=== PATIENT | male | born 1950 | race Caucasian/White ===

== ENCOUNTER 2017-12-25 08:36 | Outpatient (CLI) | payer MEDICARE, OTHER, SELFPAY | END 2017-12-25 08:56 | PROVIDERS: PCP Family Medicine; Visit Provider Internal Medicine Interventional Cardiology | DX: I48.0 Paroxysmal atrial fibrillation (principal); I42.0 Dilated cardiomyopathy; I27.20 Pulmonary hypertension, unspecified | CPT/HCPCS: 99213 ==

== ENCOUNTER 2017-12-25 12:59 | Outpatient (CLI) | payer OTHER, SELFPAY ==
--- NOTE | 2017-12-25 11:44 | DI.RAD_ITS ---
SYMPTOM/DIAGNOSIS: COUGH CHEST X-RAY: PA, lateral. Comparison 02/09/15. Heart size and pulmonary vasculature are stable and within normal limits. The lungs are clear. There is hyperinflation of the lungs consistent with underlying COPD. No infiltrates, effusions or pneumothoraces are identified. Degenerative changes are seen in the spine. There are old healed right rib fractures. IMPRESSION: COPD. No acute pulmonary process.
== END 2017-12-25 13:19 ==
PROVIDERS: PCP Family Medicine; Visit Provider Internal Medicine Interventional Cardiology
DX: R05 Cough (principal); J44.9 Chronic obstructive pulmonary disease, unspecified; I48.0 Paroxysmal atrial fibrillation; I42.0 Dilated cardiomyopathy; I27.20 Pulmonary hypertension, unspecified; R09.02 Hypoxemia; Z87.891 Personal history of nicotine dependence
CPT/HCPCS: 99214; 71046; 93005; 93010

== ENCOUNTER 2018-03-08 00:22 | Outpatient (CLI) | payer OTHER, SELFPAY ==
--- NOTE | 2018-03-08 15:19 | DI.CTLCSR_ITS ---
SYMPTOM/DIAGNOSIS: EX SMOKER, Z87.891, PAST H/O NICOTINE DEPENDENCE,SCREENING LUNG CANCER SCREENING CHEST CT: The examination was carried out according to the usual protocol. Emphysematous and fibrotic changes are demonstrated in the lungs. Fibrotic changes are apparent. There are small lung cysts. There is no demonstrated pleural based pulmonary or hilar mass or evidence of hilar adenopathy. There is no evidence of a pleural effusion. As demonstrated, the cardiovascular structures appear intact with note made of coronary artery calcification. There is no thing to suggest an aortic aneurysm. There are degenerative changes involving the lumbar spine. No focal bony abnormality is apparent. SUMMARY: Chronic pulmonary changes with COPD, pulmonary fibrosis and lung cysts. No nodule or mass is identified. Follow up lung screening with a repeat CT in 12 months is suggested for continued surveillance of this patient. Lung-RAD Category: Lung RADS Category 1- Negative
== END 2018-03-08 00:42 ==
PROVIDERS: PCP Family Medicine; Visit Provider Internal Medicine
DX: Z12.2 Encounter for screening for malignant neoplasm of respiratory organs (principal); Z87.891 Personal history of nicotine dependence; J44.9 Chronic obstructive pulmonary disease, unspecified; J84.10 Pulmonary fibrosis, unspecified; J98.4 Other disorders of lung
CPT/HCPCS: G0297

== ENCOUNTER 2018-03-26 09:29 | Outpatient (CLI) | payer OTHER, SELFPAY | END 2018-03-26 09:49 | PROVIDERS: PCP Family Medicine; Visit Provider Internal Medicine Cardiovascular Disease | DX: I48.0 Paroxysmal atrial fibrillation (principal); I10 Essential (primary) hypertension; J44.9 Chronic obstructive pulmonary disease, unspecified; F17.210 Nicotine dependence, cigarettes, uncomplicated | CPT/HCPCS: 99214; 93005; 93010 ==

== ENCOUNTER 2018-03-28 13:51 | Outpatient (CLI) | payer OTHER, SELFPAY ==
[2018-03-28 15:20] LABS: Anion Gap 7.8 mmol/L (3-11); BUN 20 mg/dL (7-18); CO2 30.2 mmol/L (21.0-32.0); CREATININE 1.17 mg/dL (0.70-1.30); Calcium 8.9 mg/dL (8.5-10.1); Chloride 104 mmol/L (98-107); Glucose 106 mg/dL (70-100); Magnesium 1.8 mg/dL (1.8-2.4); Potassium 4.4 mmol/L (3.5-5.1); Sodium 142 mmol/L (136-145)
== END 2018-03-28 14:11 ==
PROVIDERS: PCP Family Medicine; Visit Provider Internal Medicine Cardiovascular Disease
DX: I48.91 Unspecified atrial fibrillation (principal)
CPT/HCPCS: 36415; 80048; 83735

== ENCOUNTER 2018-03-29 11:26 | Day surgery (SDC) | payer OTHER, SELFPAY ==
[2018-03-29] VITALS (7 sets, daily range): BP systolic 106–131; BP diastolic 68–88; PULSE 63–82; RESP 15–20; TEMP 35.8–36.7; O2SAT 89–99
[2018-03-29] MEDS: Normal Saline 1,000 ML 30 ML IV (12:19)
--- NOTE | 2018-03-29 13:49 | W.CARDVER ---
Date of service: 03/29/18 Time of Service: 13:49 Cardioversion Patient presented for elective cardioversion. Known atrial fibrillation that is paroxysmal and symptomatic. Informed consent obtained. Patient confirmed to be in atrial fibrillation. Patient monitored hemodynamically throughout the procedure. Anesthesia present for sedation. Nursing present. Cardioversion pads placed in anterior posterior orientation. 200 J synchronized cardioversion. Patient converted to sinus rhythm. No complications. Patient to resume his cardiac medications. He will follow-up with his race and sports book writer in 4-6 weeks.
--- NOTE | 2018-03-29 13:52 | CARD_ITS ---
Date of service: 03/29/18 Time of Service: 13:49 Cardioversion Patient presented for elective cardioversion. Known atrial fibrillation that is paroxysmal and symptomatic. Informed consent obtained. Patient confirmed to be in atrial fibrillation. Patient monitored hemodynamically throughout the procedure. Anesthesia present for sedation. Nursing present. Cardioversion pads placed in anterior posterior orientation. 200 J synchronized cardioversion. Patient converted to sinus rhythm. No complications. Patient to resume his cardiac medications. He will follow-up with his acid mixer in 4-6 weeks.
== END 2018-03-29 14:35 | disposition home or self-care (01) ==
LOC: SUR 11:27
PROVIDERS: PCP Family Medicine; Visit Provider Internal Medicine Cardiovascular Disease
PROC: 5A2204Z Restoration of Cardiac Rhythm, Single (ICD-10-PCS; CPT 92960; principal; 2018-03-29 13:00)
DX: I48.0 Paroxysmal atrial fibrillation (principal)
CPT/HCPCS: 92960; 93005; 93010

== ENCOUNTER 2018-04-16 02:37 | Outpatient (CLI) | payer OTHER, SELFPAY ==
--- NOTE | 2018-05-07 10:17 | ZIOP_ITS ---
DATE OF DICTATION: May 07, [address]: 12 days, 21 hours, April 16-2018 Baseline rhythm sinus. Rare single PAC. 116 bursts of SVT, longest 14.3 seconds, fastest 190 bpm. Atrial fibrillation occurred <1% on this monitor, longest run 31 seconds with average rate 114 bpm. Atrial fibrillation heart rates generally 95-128 bpm. Ectopic atrial rhythm noted intermittently. Rare single PVC. Rare couplet. Rare triplet. Three bursts of non-sustained VT, longest 5-beat dura tion, fastest 203 bpm. One triggered event during sinus rhythm with artifact. No bradycardia or block. No symptoms. Average heart rate sinus 65 bpm, range 41-124 bpm.
== END 2018-04-16 02:57 ==
PROVIDERS: PCP Family Medicine; Visit Provider Internal Medicine Interventional Cardiology
DX: I48.91 Unspecified atrial fibrillation (principal); I47.1 Supraventricular tachycardia
CPT/HCPCS: 0296T; 93225

== ENCOUNTER → 2018-05-07 11:03 | Outpatient (CLI) | payer OTHER, SELFPAY | PROVIDERS: PCP Family Medicine; Visit Provider Internal Medicine Interventional Cardiology | DX: I48.91 Unspecified atrial fibrillation (principal); I47.1 Supraventricular tachycardia; I42.9 Cardiomyopathy, unspecified; I77.819 Aortic ectasia, unspecified site; R09.02 Hypoxemia; I27.20 Pulmonary hypertension, unspecified; J44.9 Chronic obstructive pulmonary disease, unspecified; Z87.891 Personal history of nicotine dependence | CPT/HCPCS: 0298T; 99214; 93005; 93010 ==

== ENCOUNTER 2018-08-01 00:17 | Outpatient (CLI) | payer OTHER, SELFPAY ==
--- NOTE | 2018-08-01 10:35 | MERGE_ITS ---
*[facility]* * Cardiology* [address] [place] [address] Date of study: 08/01/2018 Transthoracic Echocardiography M-mode, complete 2D, complete spectral Doppler, and color Doppler *STUDY CONCLUSIONS* Summary: 1. Left ventricle: The cavity size was normal. Wall thickness was normal. Systolic function was normal. The estimated ejection fraction was 60-65%. Wall motion was normal; there were no regional wall motion abnormalities. 2. Ventricular septum: The contour showed diastolic flattening and systolic flattening. These changes are consistent with RV volume and RV pressure overload. 3. Right ventricle: The cavity size was mildly dilated. Wall thickness was normal. Systolic function was normal. Minor axis dimension, ED (basilar, A4C): 4.5cm. 4. Tricuspid valve: There was mild-moderate regurgitation. 5. Pulmonary arteries: Pulmonary systolic pressure was increased, in the range of 60mm Hg to 65mm Hg. *PATIENT PRESENTATION* Height: 177.8cm ((70in) ) S/D Pressure: 111 / 57 Weight: 83.9kg ((184.6lb) ) BSA: 2.05m^2 Test start time: 10:40 AM. Test stop time: 11:35 AM. ORDERING Samir Rodriguez MD REFERRING Samir Rodriguez MD PERFORMING Unknown CONSULTING Cooper Forbes PERFORMING [facility] PRINT PRODUCTION ASSOCIATE RT Yamil (R)(CT), MAIRA *PROCEDURE DATA* Procedure information: This study was interpreted by [facility]. Pertinent images and digital data are archived for permanent storage and are available for subsequent review. Comparison was made to the study of 11/30/2016. Study status: Routine. Transthoracic echocardiography. M-mode, complete 2D, complete spectral Doppler, and color Doppler. A Transthoracic Echocardiogram was performed. Scanning was performed from the parasternal, apical, subcostal, and suprasternal notch acoustic windows. Images were obtained using an [id number] cardiac ultrasound machine. Image quality was adequate. Study completion: The patient tolerated the procedure well. There were no complications. History: PMH: ROGER R06.02. *CARDIAC ANATOMY* Left ventricle: The cavity size was normal. Wall thickness was normal. Systolic function was normal. The estimated ejection fraction was 60-65%. Wall motion was normal; there were no regional wall motion abnormalities. Diastolic parameters were not diagnostic. Aortic valve: Trileaflet; normal thickness leaflets. Mobility was not restricted. Doppler: Transvalvular velocity was within the normal range. There was no stenosis. There was no significant regurgitation. VTI ratio of LVOT to aortic valve: 0.54. Valve area (VTI): 2.1cm^2. Indexed valve area (VTI): 1cm^2/m^2. Peak velocity ratio of LVOT to aortic valve: 0.66. Valve area (Vmax): 2.5cm^2. Indexed valve area (Vmax): 1.2cm^2/m^2. Mean velocity ratio of LVOT to aortic valve: 0.55. Valve area (Vmean): 2.1cm^2. Indexed valve area (Vmean): 1cm^2/m^2. Mean gradient (S): 6.9mm Hg. Peak gradient (S): 11.3mm Hg. Aorta: Aortic root: The aortic root was mildly dilated. Ascending aorta: The ascending aorta was normal in size. Mitral valve: Structurally normal valve. Mobility was not restricted. Doppler: Transvalvular velocity was within the normal range. There was no evidence for stenosis. There was no significant regurgitation. Valve area by pressure half-time: 3.3cm^2. Indexed valve area by pressure half-time: 1.6cm^2/m^2. Peak gradient (D): 2.5mm Hg. Left atrium: The atrium was normal in size. Right ventricle: The cavity size was mildly dilated. Wall thickness was normal. Systolic function was normal. Ventricular septum: The contour showed diastolic flattening and systolic flattening. These changes are consistent with RV volume and RV pressure overload. Pulmonic valve: Doppler: Transvalvular velocity was within the normal range. There was no evidence for stenosis. There was no significant regurgitation. Tricuspid valve: Structurally normal valve. Doppler: Transvalvular velocity was within the normal range. There was no evidence for stenosis. There was mild-moderate regurgitation. Pulmonary artery: Pulmonary systolic pressure was increased, in the range of 60mm Hg to 65mm Hg. Right atrium: The atrium was normal in size. Pericardium: There was no pericardial effusion. Systemic veins: Inferior vena cava: Well visualized. The vessel was patent and normal in size. The respirophasic diameter changes were in the normal range (greater than or equal to 50%). Baseline ECG: Bradycardia. Measurements Left ventricle Value 11/30/2016 Reference LV ID, ED, PLAX 4.8 cm 4.9 3.5 - 6.0 LV ID, ES, PLAX 3.3 cm 3.7 2.1 - 4.0 LV PW thickness, ED, PLAX 0.9 cm 1.2 LV end-diastolic volume, 121 ml 137 1-p A2C LV ejection fraction, 1-p 64 % 56 A2C LV end-diastolic volume, 106 ml 112 1-p A4C LV ejection fraction, 1-p 60 % 52 A4C LV e', lateral 0.114 m/sec LV E/e', lateral 7 LV e', medial 0.082 m/sec LV E/e', medial 10 LV e', average 0.098 m/sec LV E/e', average 8 Ventricular septum Value 11/30/2016 Reference IVS thickness, ED, PLAX 1.0 cm 1.2 LVOT Value 11/30/2016 Reference LVOT ID, A-P 2.2 cm 2.2 LVOT area 3.8 cm^2 4 LVOT peak velocity, S 1.1 m/sec 0.75 LVOT mean velocity, S 0.7 m/sec LVOT VTI, S 21.2 cm 18.3 LVOT peak gradient, S 4.9 mm Hg LVOT mean gradient, S 2.4 mm Hg 1.1 Stroke volume (SV), LVOT 80 ml DP Stroke index (SV/bsa), 39 ml/m^2 LVOT DP Aortic valve Value 11/30/2016 Reference Aortic valve peak 1.7 m/sec velocity, S Aortic valve mean 1.28 m/sec velocity, S Aortic valve VTI, S 39.0 cm Aortic mean gradient, S 6.9 mm Hg 3 Aortic peak gradient, S 11.3 mm Hg 7 VTI ratio, LVOT/AV 0.54 0.67 Aortic valve area, VTI 2.1 cm^2 Velocity ratio, peak, 0.66 LVOT/AV Aortic valve area, peak 2.5 cm^2 2.2 velocity Velocity ratio, mean, 0.55 LVOT/AV Aortic valve area, mean 2.1 cm^2 velocity Aortic valve area/bsa, 1 cm^2/m^2 mean velocity Aorta Value 11/30/2016 Reference Aortic root ID, ED 4.0 cm 4.0 Ascending aorta ID, A-P, S 3.6 cm 3.6 Left atrium Value 11/30/2016 Reference LA ID, A-P, ES 3.9 cm LA ID/bsa, A-P 1.9 cm/m^2 <=2.2 LA area, ES, A4C 21.1 cm^2 23.9 8.8 - 23.4 LA area, ES, A2C 20 cm^2 LA volume/bsa, ES, 1-p A4C 32 ml/m^2 39 LA volume/bsa, ES, 1-p A2C 33 ml/m^2 LA volume, ES, 2-p 56 ml LA volume/bsa, ES, 2-p 28 ml/m^2 LA/aortic root ratio 0.98 1.05 Mitral valve Value 11/30/2016 Reference Mitral E-wave peak 0.79 m/sec 1 velocity Mitral A-wave peak 0.79 m/sec 0.43 velocity Mitral deceleration time 228 ms 150 - 230 Mitral pressure half-time 66 ms 42 Mitral peak gradient, D 2.5 mm Hg 4 Mitral E/A ratio, peak 1 2.35 Mitral valve area, PHT, DP 3.3 cm^2 5.3 Pulmonary veins Value 11/30/2016 Reference Pulmonary vein peak 0.77 m/sec 0.37 velocity, S Pulmonary vein peak 0.58 m/sec 0.65 velocity, D Pulmonary vein velocity 1.32 0.57 ratio, peak, S/D Pulmonary vein A-wave 0.33 m/sec reversal peak velocity Pulmonary vein A-wave 88 ms reversal duration Tricuspid valve Value 11/30/2016 Reference Tricuspid regurg peak 3.8 m/sec 3.4 velocity Tricuspid peak RV-RA 59.2 mm Hg 45.8 gradient Right atrium Value 11/30/2016 Reference RA area, ES, A4C 19.2 cm^2 22.8 8.3 - 19.5 Right ventricle Value 11/30/2016 Reference RV ID, minor axis, ED, A4C 4.5 cm base Legend: (L) and (H) preston values outside specified reference range. I have personally reviewed the images and have reviewed and edited the reported findings. Electronically signed by Mal Harry 08/01/2018 12:28
== END 2018-08-01 00:37 ==
PROVIDERS: PCP Family Medicine; Visit Provider Internal Medicine Interventional Cardiology
DX: R06.02 Shortness of breath (principal); I07.1 Rheumatic tricuspid insufficiency; I51.7 Cardiomegaly
CPT/HCPCS: 93306

== ENCOUNTER 2018-08-13 08:18 | Outpatient (CLI) | payer OTHER, SELFPAY | END 2018-08-13 08:38 | PROVIDERS: PCP Family Medicine; Visit Provider Internal Medicine Interventional Cardiology | DX: J44.9 Chronic obstructive pulmonary disease, unspecified (principal); Z99.81 Dependence on supplemental oxygen; Z87.891 Personal history of nicotine dependence; I48.0 Paroxysmal atrial fibrillation; I42.0 Dilated cardiomyopathy; I27.20 Pulmonary hypertension, unspecified; R05 Cough | CPT/HCPCS: 99214; 93005; 93010 ==

== ENCOUNTER 2018-12-26 20:33 | Outpatient (REF) | payer OTHER, SELFPAY | END 2018-12-26 20:53 | LOC: NCHCN 20:33 | PROVIDERS: PCP Family Medicine; Visit Provider Internal Medicine | DX: L02.91 Cutaneous abscess, unspecified (principal) | CPT/HCPCS: 87070; 87205 ==

== ENCOUNTER 2019-07-12 02:04 | Outpatient (CLI) | payer OTHER, SELFPAY ==
[2019-07-12 17:18] LABS: Anion Gap 5.7 mmol/L (3-11); BUN 17 mg/dL (7-18); CO2 30.3 mmol/L (21.0-32.0); CREATININE 1.27 mg/dL (0.70-1.30); Calcium 8.7 mg/dL (8.5-10.1); Chloride 102 mmol/L (98-107); Glucose 110 mg/dL (74-106); Potassium 4.9 mmol/L (3.5-5.1); Sodium 138 mmol/L (136-145)
== END 2019-07-12 02:24 ==
PROVIDERS: PCP Family Medicine; Visit Provider Family Medicine
DX: I10 Essential (primary) hypertension (principal)
CPT/HCPCS: 36415; 80048

== ENCOUNTER 2020-09-01 20:45 | Outpatient (REF) | payer OTHER, SELFPAY | END 2020-09-01 20:46 | disposition home or self-care (01) | LOC: LBN 20:45 | PROVIDERS: Visit Provider Nurse Practitioner | DX: J02.9 Acute pharyngitis, unspecified (principal) | CPT/HCPCS: 87070 ==

== ENCOUNTER 2020-11-27 10:13 | Outpatient (CLI) | payer OTHER, SELFPAY ==
[2020-11-27 12:42] LABS: HCT 48.3 % (40.0-50.0); MCH 29.6 pg (27.0-33.0); MCHC 31.1 % (32.0-36.0); MCV 95.5 fL (80-95); MPV 10.2 fL (8.0-11.0); Platelet Count 249 10^3/uL (130-400); RBC 5.06 10^6/uL (4.36-5.78); RDW 15.5 % (11.8-14.1); RDW-SD 53.9 fL; WBC 7.99 10^3/uL (4.4-10.8)
[2020-11-27 12:49] LABS: Anion Gap 6.1 mmol/L (3-11); BUN 25 mg/dL (7-18); CO2 32.9 mmol/L (21.0-32.0); CREATININE 1.4 mg/dL (0.70-1.30); Calcium 8.9 mg/dL (8.5-10.1); Chloride 105 mmol/L (98-107); Estimated GFR 50.25 (mL/min/1.73m2); Glucose 81 mg/dL (74-106); Potassium 4.4 mmol/L (3.5-5.1); Sodium 144 mmol/L (136-145)
[2020-11-27 13:39] LABS: Hemoglobin A1C 6.2 % (<5.7)
== END 2020-11-27 10:14 | disposition home or self-care (01) ==
LOC: LOS 10:13
PROVIDERS: PCP Family Medicine; Referring Provider Family Medicine; Visit Provider Family Medicine
DX: R73.9 Hyperglycemia, unspecified; E87.1 Hypo-osmolality and hyponatremia; R53.83 Other fatigue
CPT/HCPCS: 36415; 80048; 85027; 83036

== ENCOUNTER 2020-12-08 18:14 | Outpatient (REF) | payer MEDICARE, SELFPAY ==
[2020-12-09 13:12] LABS: Abs Immature Grans 0.07 10^3/uL (0.0-0.06); Absolute Basophil Count 0.09 10^3/uL (0.0-0.2); Absolute Eosinophil Count 0.09 10^3/uL (0.0-0.7); Absolute Lymphocyte Count 0.69 10^3/uL (1.2-3.4); Absolute Monocyte Count 0.65 10^3/uL (0.1-0.8); Basophils % 1.1; Eosinophils % 1.1; HCT 49.7 % (40.0-50.0); HGB 15.2 g/dL (13.5-17.5); Immature Grans % 0.9; Lymphocytes % 8.6; MCH 29.1 pg (27.0-33.0); MCHC 30.6 % (32.0-36.0); MCV 95.2 fL (80-95); MPV 9.9 fL (8.0-11.0); Monocytes % 8.1; Neutrophils % 80.2; Nucleated RBC 0 %; Platelet Count 320 10^3/uL (130-400); RBC 5.22 10^6/uL (4.36-5.78); RDW 15.3 % (11.8-14.1); RDW-SD 54.1 fL; WBC 7.99 10^3/uL (4.4-10.8)
[2020-12-09 13:21] LABS: Anion Gap 9.8 mmol/L (3-11); BUN 29 mg/dL (7-18); CO2 30.2 mmol/L (21.0-32.0); CREATININE 1.8 mg/dL (0.70-1.30); Calcium 8.8 mg/dL (8.5-10.1); Chloride 103 mmol/L (98-107); Estimated GFR 37.49 (mL/min/1.73m2); Glucose 123 mg/dL (74-106); NT-proBNP 5240 pg/mL (<300); Potassium 3.6 mmol/L (3.5-5.1); Sodium 143 mmol/L (136-145)
[2020-12-10 10:33] LABS: COVID-19 RT-PCR UVMMC Result Negative (Negative)
== END 2020-12-08 18:15 | disposition home or self-care (01) ==
LOC: LBN 18:14
PROVIDERS: PCP Family Medicine; Visit Provider Family Medicine
DX: Z20.822 Contact with and (suspected) exposure to COVID-19 (principal); R05.9 Cough, unspecified; J06.9 Acute upper respiratory infection, unspecified; R06.02 Shortness of breath; E87.1 Hypo-osmolality and hyponatremia
CPT/HCPCS: U0003; U0005

== ENCOUNTER 2020-12-08 18:31 | Outpatient (CLI) | payer MEDICARE, SELFPAY ==
--- NOTE | 2020-12-08 14:00 | DI.RAD_ITS ---
Exam(s) XR CHEST 2V PA LATERAL EXAM: XR CHEST 2V PA LATERAL CLINICAL HISTORY: sob,chronic cough, r05.3 TECHNIQUE: 2D digital imaging was performed. FINDINGS: MEDIASTINUM: Normal. HEART: Normal. PULMONARY VASCULATURE: Prominent, which could be related to pulmonary hypertension. LUNGS: Upper lobe emphysematous changes. Mild fibrotic changes. Scarring at the left lung base. PLEURAL SPACE: No pleural effusion or pneumothorax. BONE:Old right upper rib fractures. Mild degenerative changes in the spine. IMPRESSION: Emphysematous and fibrotic changes. No acute abnormality. DATA REPOSITORY: RADIATION DOSE DELIVERED:
== END 2020-12-08 18:51 ==
PROVIDERS: PCP Family Medicine; Visit Provider Family Medicine
DX: R06.02 Shortness of breath (principal); R05.3 Chronic cough; J98.4 Other disorders of lung
CPT/HCPCS: 71046

== ENCOUNTER 2020-12-09 12:57 | Outpatient (CLI) | payer MEDICARE, SELFPAY ==
--- OUTSIDE RECORDS SUMMARY | 2020-12-09 13:00 | XMS_ITS ---
:1950 Author Care Team Providers Name Role Phone MARY ANNE VALDEZ MD Test Carrier Unavailable SAMIR RODRIGUEZ MD Injection Molding Technician [phone] [facility] Primary Care Provider [phone] Allergies Code Code System Name Reaction Severity Status Onset NKDA ? Notes: No seafood allergy. No co ntrast allergy. Medications Name Status Start Date Stop Date ? ? Farxiga 10 mg tablet Completed ? 04/30/2020 Take 1 tablet every day by oral route. Flovent HFA 110 mcg/actuation aerosol Completed ? 05/17/2018 inhaler fluticasone propionate 50 mcg/actuation Active ? Not available nasal spray,suspension furosemide 20 mg tablet Active ? Not avai lable ipratropium bromide 21 mcg (0.03 %) nasal spray Active ? Not available INSTILL 2 SPRAYS INTO EACH NOSTRIL TWICE A DAY levalbuterol HFA 45 mcg/actuation Active ? Not available aerosol inhaler levofloxacin 500 mg tablet Completed ? 10/23 losartan 25 mg tablet Active ? Not availa ble metoprolol succinate ER 100 mg Active ? N ot available tablet,extended release 24 hr prednisone 10 mg tablet Completed ? 10/24/19 20 Spiriva with HandiHaler 18 mcg and Completed ? 05/17/2018 inhalation capsules spironolactone 25 mg tablet Active ? Not available sulfamethoxazole 800 mg-trimethoprim Completed ? 02/28/2019 160 mg tablet Trelegy Ellipta 100 mcg-62.5 mcg-25 mcg powder for inhalation Ac tive ? Not available INHALE ONE PUFF BY MOUTH EVERY DAY Xarelto 20 mg tablet Active ? Not availab le Zyrtec 10 mg tablet Active ? Not availabl e Take 1 tablet every day by oral route. Problems Name Status Onset Date Source ? Atrial Fibrillation Active 02/28/2019 ? Idiopathic Sleep Related Active ? History Non-obstructive Alveolar Hypoventilation Essential Hypertension Active ? ? Pulmonary Hypertension Active ? ? Dilated Cardiomyopathy Active ? ? Paroxysmal Atrial Fibrillation Active ? ? Dilatation of Aorta Active ? ? Pulmonary Emphysema Active ? ? Chronic Obstructive Lung Disease Active ? History Apnea Active ? History Snoring Active ? History Procedure by Method Unknown ? History Procedures Date Name Performed by ? 08/01/2018 Echocardiography Information not avai lable Notes: 11/30/16; 04/21/16; 04/23/13; 10/15 06/25; 07/30/12 03/29/2018 Cardioversion Information not avai lable Notes: 06/26/17; 11/28/16; 10/20/15; 201 3 03/02/2017 Measurement of Respiratory Function Info rmation not available 12/12/2016 Holter Extended Electrocardiographic Rec ording Information not available Notes: 11/02/15; 10/26/12; 08/06/12 08/02/2012 Cardiovascular Stress Testing Informatio n not available 03/01/2018 LDCT, Chest, for Lung Cancer Screening [facility] (Radiology) [address] [place] [address] (Work Place) 05/17/2018 LDCT, Chest, for Lung Cancer Screening [facility] Radiology (Internal) [address] [place] [address] (Work Place) 02/28/2019 US, Echocardiogram [facility] Radiology (Internal) [address] [place] [address] (Work [address]) 02/28/[address] [facility] Cardio pulmonary [address] [place] [address] (Work Place) 03/21/2019 LDCT, Chest, for Lung Cancer Screening [facility] Radiology (Internal) [address] [place] [address] (Work [address]) 07/03/2019 CT, Chest, W/o Contrast [facility] Radiology (Internal) [address] [place] [address] (Work Place) 03/16/2020 US, Echocardiogram [facility] Radiology (Internal) [address] [place] [address] (Work [address]) 10/24/2019 US, Echocardiogram [facility] Radiology (Internal) [address] [place] [address] (Work Place) 04/28/2020 US, Echocardiogram, Transthoracic, [facility] Radiology (Internal) Complete [address] [place] [address] (Work Place) 05/04/2020 LDCT, Chest, for Lung Cancer Screening [facility] Radiology (Internal) [address] [place], [place] [id number] (Work Place) 10/26/2020 US, Echocardiogram, Transthoracic, [facility] Radiology (Internal) Complete [address] [place] [address] (Work Place) 11/03/2020 US, Echocardiogram, Transthoracic, [facility] Radiology (Internal) Complete [address] [place] [address] (Work Place) Notes: 10/2012 Results Lab Results Date Name Specimen Result Interpretation Description Value Range Status Address ? 10/28/2019 EKG Done by ? No ? ? ? N orth Lab observation Count ry recorded. Hospita [facility] Lab (Internal) : [address] 10/24/2019 CBC W/ Auto BLD ? Wbc 7.9 5.0-10.0 Final [place] Diff 10*3/uL 10*3/uL [facility] (Internal) : [address] ? ? BLD ? Rbc 5.34 4.60-6.00 Final [place] 10*6/uL 10*6/uL [facility] (Internal) : [address] ? ? BLD ? Hgb 15.9 g/dL 14.0-18.0 Final [place] g/dL [facility] (Internal) : [address] ? ? BLD ? Hct 49.7 % 41.0-51.0 Final [place] % [facility] (Internal) : [address] ? ? BLD ? Mcv 93.1 fL 80.0-96.0 Final [facility] (Internal) : [address] ? ? BLD ? Mch 29.8 pg 26.0-32.0 Final [place] [facility] (Internal) : [address] ? ? BLD ? Mchc 32.0 g/dL 31.0-35.0 Final Nort h g/dL [facility] (Internal) : [address] ? ? BLD High Rdw 14.7 % 11.5-14.5 Final [place] % [facility] (Internal) : [address] ? ? BLD ? Plt 310 130-450 Final [place] 10*3/uL 10*3/uL [facility] (Internal) : [address] 10/24/2019 BMP, Serum or S ? g/r 91 mg/dL 74-106 [place] Plasma mg/dL [facility] (Internal) : [address] ? ? S ? Bun 20 mg/dL 9-20 Final [place] mg/dL [facility] (Internal) : [address] ? ? S ? Crea 1.20 0.66-1.25 Final [place] mg/dL mg/dL [facility] (Internal) : [address] ? ? S ? Ca 9.9 mg/dL 8.4-10.2 Final [place] mg/dL [facility] (Internal) : [address] ? ? S ? Na 140 137-145 Final [place] mmol/L mmol/L [facility] (Internal) : [address] ? ? S ? K 4.5 3.5-5.1 Final [place] mmol/L mmol/L [facility] (Internal) : [address] ? ? S ? Cl 102 98-107 Final [place] mmol/L mmol/L [facility] (Internal) : [address] ? ? S ? Tco2 30.0 22.0-30.0 Final [place] mmol/L mmol/L [facility] (Internal) : [address] 10/24/2019 Differential, BLD ? Polys 63 % 40-75 % Final [place] Manual, [facility] [address], [place] ? ? BLD ? Bands 0 % 0-5 % Final [facility] (Internal) : [address] ? ? BLD Low Lymphs 19 % 20-50 % Final [facility] ab (Internal) : [address] ? ? BLD High Nuckolls 11 % 2-10 % Final [facility] (Internal) : [address] ? ? BLD ? Eos 3 % 0-6 % Final [facility] ab (Internal) : [address] ? ? BLD ? Baso 1 % 0-1 % Final [facility] (Internal) : [address] ? ? BLD ? Atyp Lymph 3 % ? Final [facility] ab (Internal) : [address] ? ? BLD ? Plts, Est. adequate adequate Final [facility] (Internal) : [address] ? ? BLD ? RBC normal normal Final [facility] (Internal) : [address] 10/24/2019 Neutrophil BLD ? Anc-manual 4.96 ? [place] [facility] Count, 10*3/uL [facility] (Anc), Blood (Int ernal): [address] 10/24/2019 Nlr-manual BLD High Nlr - 3.32 0.00-3.20 Final [facility] L [facility] (Internal) : [address] 10/24/2019 BNP (B-type S High Nt-probnp 858 pg/mL 0-125 [facility]mL Count ry Peptide), Hospita l Lab Prohormone (Inter nal): N-terminal, [address], [place] Immunoassay, Blood Past Encounters 11/03/2020 Cardiomyopathy Samir Rodriguez MD: [address] [place] [address], Ph. 04/28/2020 Dilated Cardiomyopathy; Cardiomyopathy Samir Rodriguez MD: [address] [place] [address], Ph. 10/24/2019 Dilatation of Aorta Samir Rodriguez MD: [address] [place] [address], Ph. 07/03/2019 Chronic Obstructive Lung Disease Mary Anne Valdez MD: [address] [place] [address], Ph. Social History Tobacco Smoking Status Former Smoker Vaccine List Notes: refuses flu shots and pne [place] Plan of Care Reminders Provider Appointments None ? ? recorded. Lab None ? ? recorded. Referral None ? ? recorded. Procedures None ? ? recorded. Surgeries None ? ? recorded. Imaging None ? ? recorded. Vitals 11/03/2020 10:30AM Follow Up 30 Height Blood Pressure 177.8 cm 111/71 mm[Hg] 04/28/2020 09:00AM Follow Up 30 Height Weight BMI Blood Pressure 177.8 cm 86.2 kg 27.3 kg/m2 122/87 mm[Hg] 10/24/2019 08:30AM Follow Up 30 Height Weight BMI Blood Pressure 177.8 cm 85.4 kg 27 kg/m2 109/77 mm[Hg] 07/03/2019 03:00PM Follow Up 30 Height Weight BMI Blood Pressure 177.8 cm 88.3 kg 27.9 kg/m2 137/76 mm[Hg] 04/03/2019 10:30AM Follow Up 30 Height Weight BMI Blood Pressure 177.8 cm 83.35 kg 26.4 kg/m2 129/72 mm[Hg] 03/21/2019 01:00PM Follow Up 30 Height Weight BMI Blood Pressure 177.8 cm 87.9 kg 27.8 kg/m2 126/62 mm[Hg] 02/28/2019 08:30AM Consult 45 Height Weight BMI Blood Pressure 177.8 cm 86.6 kg 27.4 kg/m2 124/82 mm[Hg] 05/17/2018 09:45AM Follow Up 30 Height Weight BMI Blood Pressure 177.8 cm 89.2 kg 28.2 kg/m2 122/68 mm[Hg] 03/01/2018 09:30AM Consult 45 Height Weight BMI Blood Pressure 177.8 cm 88.7 kg 28.1 kg/m2 112/64 mm[Hg] 02/16/2017 Height 177.8 cm 02/16/2017 Weight Blood Pressure 85.98 kg 122/78 mm[Hg] 12/29/2016 Weight Blood Pressure 82.1 kg 140/82 mm[Hg] 12/29/2016 Height 177.8 cm
--- OUTSIDE RECORDS SUMMARY | 2020-12-09 13:01 | XMS_ITS | Encounter Summary ---
:1950 Author Care Team Providers Name Role Phone [facility] Medical Primary Care Provider [phone] Samir Rodriguez MD Field Return Repairer [phone] Mary Anne Valdez MD Buyer Intern Unavailable Reason for Visit Follow Up Echo; Atrial Fibrillation; Pul monary HTN; Aortic Dilation Assessment and Plan Assessment Note Date: November 03, 2020 Referring: Re: Mina Martins 69-year-old man. Problems: 1. Atrial fibrillation. Intermittent palpitations. Atrial fibrillation managed with rate co ntrol (beta-lolly), anticoagulation with rivaroxaban. Multiple cardioversions with recurrent a trial fibrillation. Summer 2017: Evaluated by Kimo Alfaro MD EP in [place] regarding ablation. Kimo's opinion was that the patient could try an antiarrhythmic (Tikosyn recommended), or proceed directly to ablation (o r third option, continue as we are). Pat ient wished (and continues to wish) to continue as we are. In detail: In 2012 noted a one-year gradual decreas e in aerobic capacity and increasing dyspnea. This increased significantly through summer 2012. He was noted to be in atrial fibrillatio n with RVR. Echocardiogram: LVEF 25%, dilated cardiomyopathy. MPI: Negative ischemia. [facility] summer 2012. Recurrent atrial fibrillation September 6. A sensation of not feeling right. Noted an increase in shortness of breath and dyspnea on exertion. [facility] October 2015. Recurrent atrial fibrillation August 2016. Intermittent palpitations/shortness of breath fatigue. [facility] November 2016. [facility] June 2017. [facility] March 2018. [facility] March 06, 2019. Patient went back in atrial fibrillation September 14, 2019. When I am pushing myself, I know it is there. Patient was reluctant to consider repeat cardioversion. Agreed to pursue rate control/anticoagulation strategy. 2. Cardiomyopathy. Noticed 2012 as above. Likely tachycardi a mediated. Negative MPI. No history of viral illness. TSH normal. No history exposure/chemotherapy/radiation. No alcohol for decades. Echocardiogram normalized 2016 (60% LVEF ). LVEF have subsequently vacillated between 50 and 60%, however most recent echo, April 2020: LVEF 45%. 3. Sleep apnea. Does have nocturnal hypoxia on nocturnal oxygen. Apparently does not have sleep apnea as such (has been evaluated). 4. COPD. Severe. Home O2 dependent. HPI: November 03, 2020. Patient continu es to stay modestly active around the house. He has a horse, he mucks the stall every day. Shovels a lot of sawdust. Puts down hay, paris the horse etc. This is his most vigorous form of physical activ ity currently. Shovels snow. Cleans the roof off. Activities are well-tolerated for the most part. Heart rates at home typically 65-115 bpm , usually around 85-90 bpm. He is more short of breath. When he walk s the barn, distance of 150 feet there is a bit of a dip in the middle of this path. He is often times quite short of breath when he walks uphill in either direct ion. Stairs can make him quite short of breath. The cold weather is a trigger for aggravating dyspnea. He is tolerated the humid weather reasonably well. He is careful about what he does and how fast he does it. Walking uphill is the hardest thing he does. He is not good about using oxygen. Oxyge n saturations will occasionally dip into the 70s with exertion. They are in the 80s at rest. He has noted increased lower extremity e tay. This does not have an orthostatic character any longer. Legs are swollen throughout the course of the day and night. His weight is overall stable, around 18 0 pounds. PMD recently started Lasix 20 mg twice daily, he is quite inconsistent about taking Lasix. No significant impact on his lower extremities yet. Uses oxygen at night. No chest discomfort. Dyspnea with exerti on as above. Lower extremity edema. He may develop a something of a cough if he does not take his Lasix. No PND orthopnea. Sleeps on one pillow. 2 L oxygen at [facility]. Occasional palpitations especially w ith physical activity. No presyncope or syncope. No bleeding problems. Data: Cardiac risk factors: Positive tobacco, [id number] history, decreased 2011 to several cigarettes per day. He has quit. Negative family history (father's brothers, x5, sudden cardiac history, MIs ). Negative diabetes. Negative hypertens ion. Negative cholesterol. Social history: Activity profile as abov e. No alcohol. No tobacco. Past medical history: As above. Review of systems: A 10-point review of systems was obtained. Pertinent positives as described in HPI, all others negative. Echo: October 26, 2020. LVEF 40-45%. A trial fibrillation. Paradoxical septal motion. Inferoseptal, anteroseptal base hypokinetic. Right ventricle mildly dilated, mild hypokinesis. Left atrium mildly d ilated, 35.2. Right atrium moderately di lated. Aortic valve trileaflet. 1+ MR. 2+ TR. Pulmonary pressure 55-65 mmHg. Pericardium normal. Aortic root mildly dilated 3.9. Ascending normal 3.4. Arch normal 1.2. No coarct. No PDA. IVC normal. E/E primed average 6.1. April 20, 2020. LVEF 45%. Normal size. Ba cristobal anteroseptal moderately to severely hypokinetic to the mid-ventricle. Inferolateral wall moderately hypokinetic. Normal apical contraction. Diastolic indices not assessed due to atrial fibrillation. E/E primed less than 11. Right ventricle mildly dilated, mildly globally hypokinetic. Left atrium mildly dilated. Right atrium mildly dilated. Aortic valve trile aflet. Trivial MR. 2+ TR. Pulmonary pres sure 40-50 mmHg. Pericardium normal. Aortic root mildly dilated 4.2. Ascending normal 3.4. Arch normal 2.6. No coarct. No PDA. IVC normal. March 04, 2019. LVEF 50-55%. Normal si ze. Mild LVH. Right ventricle dilated, normal function. Left atrium normal. Right atrium normal. Aortic valve trileaflet. Sclerotic. Trace AI. Trivial MR. 2+ TR. Pulmonary pressure 45-55 mmHg total. Aor tic root moderately dilated 4.4. Ascending aorta normal 3.4. Aortic arch normal 2.6. No coarct. No PDA. IVC normal. Atrial fibrillation. E/E prime average less than 11. August 01, 2018. LVEF 60-65%. Normal size. Diastolic parameters nondiagnostic. Ventricular septum flattened in diastole and systole: RV volume / pressure overload suggested. Right ventricle mildly dilated , normal function. Aortic valve trileafl et. Aortic root mildly dilated, ascending aorta normal. Left atrium normal. Right atrium normal. 1?2+ TR. IVC normal E/E prime average 8. Rhythm unclear. P ulmonary pressure 55-60 mmHg plus right atrial pressure (55-65 mmHg total). November 30, 2016. LVEF 50-55%. Normal si ze. Mild LVH. Right ventricle normal size, low normal systolic function. Ventricular septum flattened in systole and diastole: RV pressure/volume overload. Aortic root upper limits normal size, 4 cm, as cending aorta 3.6 cm. Aortic valve trileaflet. 1+ MR. Mild left atrial enlargement. Moderate right atrial enlargement. Pulmonary pressure 45-50 mmHg. Diastolic assessment not possible. April 21, 2016. LVEF 60%. Moderate LVH. N ormal size. Mild inferolateral hypokinesia. Right ventricle normal. Aortic valve trileaflet. Mildly dilated aortic root 4.1 cm. Ascending aorta normal 3.3 cm. 1+ MR. 1+ TR. Mild left atrial enlargement, mild right atrial enlargement. Pulmonary pressure 30-40 mmHg. IVC normal. April 23, 2013. LVEF 50%, mild inferobas al hypokinesis. Right ventricle normal. No significant valvular pathology. Pulmonary pressure 36 mmHg. Atrial size normal. Aortic root 4.3, ascending aorta 3.6. November 07, 2012. LVEF 45%. Mild diffu se hypokinesia. Normal size. Right ventricle normal. No significant valvular pathology. Pulmonary pressure 50 mmHg plus right atrial pressure. Aortic root mildly dilated, 4.5 cm. Ascending aorta 3.3 cm. July 30, 2012. LVEF 25%. Severe global h ypokinesia. The limits normal size. Right ventricle mildly hypokinetic, normal size. 2+ MR. Pulmonary pressure 15-20 mmHg plus right atrial pressure. Moderate lef t atrial enlargement. Moderate mild aort ic root dilatation, 4.5 cm. Normal ascending aorta. Cardiac MRI: Stress: August 02, 2012. Ambulated 2 minut es 50 seconds on the Steve protocol stopped because of rapid atrial fibrillation. No chest pain. No EKG changes. Normal perfusion. Negative ischemia. LVEF 14% (atrial fibrillation). [facility]: Holter: March 21, 2019. 48-hour study. Baseline rhythm sinus. Very frequent single PAC. Cannot rule out runs of atrial fibrillation. 79 runs SVT identified. Longest 10 beat duration, fastest 166 bpm. Some of these runs may be atrial fibrill ation. Rare single PVC, 95 total. 1 couplet. No VT. Nocturnal heart rates as low as 40-45 bpm, sinus bradycardia.. No symptoms. Average heart rate 71 bpm, range 43-127 bpm. December 12, 2016. 24-hour study. Baselin e rhythm sinus. Rare single PAC. 21 burst SVT, longest 18 beat duration, fastest 166 bpm. No atrial fibrillation. Rare single PVC. No VT. No significant bradycard ia. No symptoms. Average rate 67 bpm, ra nge 43-123 bpm. Event monitor: April 162018. Baselin e rhythm sinus. Rare single PAC. 116 burst SVT, longest 14.3 seconds, fastest 190 bpm. Atrial fibrillation occurring less than 1%. Longest run 31 seconds, average rate 114 bpm. Atrial fibrillation heart rates generally 95-128 bpm. Ectopic atrial rhythm noted intermittently. Rare single PVC. Rare couplet. Rare triplet. 3 burst nonsustained VT, longest 5 beat dura tion, fastest 203 bpm. 1 triggered event during sinus rhythm with artifact. No bradycardia or block. No symptoms. Average heart rate 65 bpm, range 41-124 bpm. EKG: November 03, 2020. Atrial fibrilla tion 89 bpm. Normal axis. No acute change. QT/QTc 348/398 ms. April 28, 2020. Atrial fibrillation 99 b pm. Normal axis. QT/QTc 342/410 ms. October 24, 2019. Atrial fibrillation 95 bpm. Normal axis. No acute process. QT/QTc 338/399 ms. April 03, 2019. Sinus rhythm 54 bpm. Normal axis. QT/QTc 406/396 ms. February 28, 2019. Atrial fibrillation 89 bpm. Normal axis. Incomplete right bundle branch block. QT/QTc 354/404 ms. August 13, 2018. Sinus rhythm 58 bpm. Kateryna l axis. QT/QTc 390/383 ms. T wave inversion lead L. May 07, 2018. Sinus rhythm 62 bpm. Nor mal axis. QT/QTc 384/390 ms. T wave inversion lead L. Radiology: March 21, 2019. Low-dose ch est CT screening. 2 stable nodules left lung. New area spiculated density right upper lobe. Mild to moderate coronary artery calcification. Recommend: PET CT or repeat CT scan in 6-8 weeks. July 20, 2015. Chest x-ray. Interstitial changes, chronic Pulmonary function test: March 02 8. FVC 94% predicted, FEV1 49% predicted, FEV1/FVC 52% predicted. DLCO uncorrected 33% predicted. Spirometry: Severe obstructive airway disease with significant b ronchodilator response. Lung volumes: No evidence restriction. Mild hyperinflation and air trapping. Diffusion capacity: Severely reduced when corrected with alveolar volume. Airway resistance mildly el evated. Impression: Severe obstructive a irway disease associated with mild hyperinflation, air trapping, and severe diffusion defect. Allergies: NKDA Contrast allergies: Labs: October 24, 2019. CBC normal. July 26, 2018. BUN/creatinine 20/1.17, G FR greater than 60. Lites normal including potassium. June 30, 2017. BUN/creatinine 11/1.08, GF R greater than 60. Lites normal. Total cholesterol 132, HDL 41, LDL 78, triglycerides 86. July 30, 2012. proBNP 1882. Medications: Lasix 20 mg twice daily, lo sartan 25 mg daily, Xarelto 20 mg daily, metoprolol succinate 100 mg daily Zyrtec, Trelegy, lev albuterol, Atrovent , fluticasone Exam: Blood pressure: 111/71 Heart rate: 101 Oxygen saturation: 82% room air rest Weight: 190 pounds, 188 pounds, 183.8 po unds, 196.7 pounds, 195.5, 195.4, 189, 181, 188.6, 190, 189, 184, 182, 190 General: Patient alert oriented appropri ate conversant. HEENT: JVP 7 cm sitting. Heart: Irregularly irregular. Lungs: Diminished breath sounds bilatera lly, clear. Abdomen: Soft. Nontender. Nondistended. No sacral edema. Extremities: 2+ edema bilateral lower ex tremity. In support hose. Assessment: 1. Atrial fibrillation. Atrial fibrillation probably permanent a t this point. Management long-term with beta-lolly a nd rivaroxaban. Recurrent atrial fibrillation 2012, 2013 , 2015, 2016, 2017, 2017, 2019. Cardioversions after all these recurrences. Normal thyroid function historically. He has nocturnal hypoxemia, uses oxygen at night. No sleep apnea as such, he has undergone evaluation. Chads 2 vasc= 3, cardiomyopathy, age gre ater than 65, hypertension. Tolerating rivaroxaban without difficulty. He has been unenthusiastic about the pos sibility of antiarrhythmic therapy or ablation. He saw Kimo Alfaro in December 2017. Kimo thought ablation would be a fair option, as would antiarrhythmic thera py with Tikosyn or, continuing current m anagement. Event monitor April 2018: Baseline rhyth m sinus with less than 1% atrial fibrillation. A. fib events noted were paroxysmal and brief, lasting less than 30 seconds. Average sinus rate 65 bpm. I think he is maximally beta blocked. Recurrent atrial fibrillation mid [facility] er 2018. DCCV March 06, 2019. Holter monitor 48-hour March 2019: Ba chapis rhythm sinus. Very frequent single PAC cannot rule out bursts of brief A. fib, 79 such episodes identified. No significant ventricular ectopy. No symptoms. Redeveloped atrial fibrillation September. He notices it when he exerts himself. Otherwise, A. fib appears to be reasonably well-tolerated, with reasonable heart rate control. With recurrent atrial fibrillation as russell ch and no interest in rhythm control strategy we agreed to pursue a rate control/anticoagulation strategy. April,October 2020, A. fib is noted o n EKG. Rates at home would appear to be about 9 0-110 bpm. Maintained on metoprolol and Xarelto. Today, November 03, 2020, patient is cu rious about the possibility of another cardioversion. We could certainly try, I think chances of long-term success are slim. In the end, we elected not to pursue cardioversion. We will continue with man agement as above. 2. Dilated cardiomyopathy. 2012. Non-ischemically mediated (MPI 201 3: Normal perfusion). Likely tachycardia mediated. Significant improvement in LV function, to low normal LVEF 2013, complete normalization by 2016. Maintained on low-dose loop diuretic, be ta-lolly, spironolactone, ARB. Potassium and renal function historicall y normal. November 2016 echo demonstrating stable L VEF. Pulmonary pressures a bit more elevated than other studies (45-50 mmHg). July 2018: Normal LV systolic function. February 2019. In atrial fibrillation. LV EF 50-55%. April 2020. LVEF 45%. Normal size. Basal anteroseptal moderately to severely hypokinetic to the mid-ventricle. Inferolateral wall moderately hypokinetic. Normal apical contraction. October 2020. LVEF 40-45%. Paradoxical septal motion. Inferoseptal, anteroseptal base hypokinetic. Maintained on ARB, beta-lolly, spirono lactone, low-dose loop diuretic, Dapagliflozin. Today, November 03, 2020, I am concerne d about his breathing overall. I think this is largely due to COPD (below). He is developing increasing peripheral edema, although describes his weight is being e ssentially stable. Denies PND orthopnea. I suspect he has advancing right heart failure (below). Loop diuretic has been increased to addr ess peripheral edema. I am not sure of the significance of wha t appears to be a slight decrement in EF April?October 2020. We will repeat echo 6 months. 3. Right heart failure. 2012. Right ventricle mildly hypokinetic , normal size. Pulmonary pressure 15-20 mmHg plus right atrial pressure. 2012. Right ventricle normal. Pulmonary pressure 50 mmHg plus right atrial pressure. 2013. Right ventricle normal. Pulmonary pressure 36 mmHg. Atrial size normal. 2016. Right ventricle normal. 1+ TR. Mil d right atrial enlargement. Pulmonary pressure 30-40 mmHg. IVC normal. 2016. Right ventricle normal size, low n ormal systolic function. Ventricular septum flattened in systole and diastole: RV pressure/volume overload. Pulmonary pressure 45-50 mmHg. 2018. Ventricular septum flattened in di astole and systole: RV volume / pressure overload suggested. Right ventricle mildly dilated, normal function. Right atrium normal. 1?2+ TR. IVC normal. Pul monary pressure 55-60 mmHg plus right at rial pressure (55-65 mmHg total). 2019. Right ventricle dilated, normal fu nction. Right atrium normal. 2+ TR. Pulmonary pressure 45-55 mmHg total. IVC normal. April 2020. Right ventricle mildly dilat ed, mildly globally hypokinetic. Right atrium mildly dilated. 2+ TR. Pulmonary pressure 40-50 mmHg. IVC normal. October 2020. Right ventricle mildly d ilated, mild hypokinesis. Right atrium moderately dilated. Aortic valve trileaflet. 2+ TR. Pulmonary pressure 55-65 mmHg. Pulmonary hypertension appeared to begin in 2012, I think at the time of his cardiomyopathy diagnosis. Pulmonary pressures have been up and down through the years. Right ventricle size and systolic function likewise waxing and waning. Today, November 03, 2020, he has more s ignificant peripheral edema than before. I suspect this secondary to RV dysfunction. He will try to use Lasix in entirety in the mornin mg. 4. Pulmonary hypertension. As above. Moderate. Overall, slowly prog ressive. Suspect WHO class III pulmonary hyperten dylan: Related to COPD. 5. Hypoxia. Concerning on today's visit, October 152020. I think this is his most pressing problem. I think his hypoxia is worsening. With exertion sats dropping into the 70s. Maintaining sats in the 80s at res t. I think these numbers have become mor e problematic over the last year. Not using oxygen much at all during the day, consistent with the oxygen use at night. I suspect COPD is worsening. I think he is going to see Dr. Philippe rowan in [place]. 6. Aortic dilatation. February 2019: Aortic root moderately dil ated 4.4. Ascending aorta normal 3.4. Aortic arch normal 2.6. This is the first echo study performed in [place]. April 20, 2020. Aortic root mildly dilate d 4.2. Ascending normal 3.4. Arch normal 2.6. October 26, 2020. Aortic root mildly d ilated 3.9. Ascending normal 3.4. Arch normal 1.2. No coarct. No PDA. Thank you for allowing me to participate in this patient's care. Sincerely, Samir Rodriguez MD, [facility] Disposition: [facility] Time: 40-minute [id number] interview w ith patient, patient's . 10-minute chart review development completion 1. Cardiomyopathy ? US, echocardiogram, transt horacic, complete Discussion Note: None recorded.Patient educational handouts: No information available. Plan of Care Reminders Provider Appointments Follow up 30 Mi jefry Smith 02/12/2021 MD Michael 10:30AM Lab None ? ? recorded. Referral None ? ? recorded. Procedures None ? ? recorded. Surgeries None ? ? recorded. Imaging US, [facility] Echocardiogram, 11/03/2020 Hospital Radiolo gy Transthoracic, (Internal) Complete Medications Name Start Date ? ? fluticasone propionate 50 mcg/actuation nasal spray,russell spension ? furosemide 20 mg tablet ? TAKE 1 TABLET BY MOUTH ONCE DAILY NEEDED FOR EDEMA ipratropium bromide 21 mcg (0.03 %) nasal spray ? INSTILL 2 SPRAYS INTO EACH NOSTRIL TWICE A DAY levalbuterol HFA 45 mcg/actuation aerosol inhaler ? Inhale 2 puffs every 6 hours by inhalation route as n eeded. losartan 25 mg tablet ? TAKE ONE TABLET BY MOUTH AT BEDTIME metoprolol succinate ER 100 mg tablet,extended release 24 hr ? TAKE TWO TABLETS BY MOUTH EVERY DAY spironolactone 25 mg tablet ? TAKE ONE HALF TABLET ORALLY AT BEDTIME Trelegy Ellipta 100 mcg-62.5 mcg-25 mcg powder for inh alation ? INHALE ONE PUFF BY MOUTH EVERY DAY Xarelto 20 mg tablet ? TAKE ONE TABLET BY MOUTH AT BEDTIME Zyrtec 10 mg tablet ? Take 1 tablet every day by oral route. Medications Administered None recorded. Vitals Height Blood Pressure 5 ft 10 in 111/71 mm[Hg] Results Lab Results None recorded. Allergies Code Code System Name Reaction Severity Onset NKDA ? ? ? Notes: No seafood allergy. No co ntrast allergy. Problems Name Status Onset Date Source ? [...] Active ? History Snoring Active ? History Procedures Date Name Performed by ? 08/01/2018 Echocardiography Information not avai lable Notes: 11/30/16; 04/21/16; 04/23/13; 10/15 06/25; 07/30/12 03/29/2018 Cardioversion Information not avai lable Notes: 06/26/17; 11/28/16; 10/20/15; 201 3 03/02/2017 Measurement of Respiratory Function Info rmation not available 12/12/2016 Holter Extended Electrocardiographic Rec ording Information not available Notes: 11/02/15; 10/26/12; 08/06/12 08/02/2012 Cardiovascular Stress Testing Informatio n not available 10/26/2020 US, Echocardiogram, Transthoracic, [facility] (Internal) Complete [address] [place], [place] [id number] (Work Place) 11/03/2020 US, Echocardiogram, Transthoracic, [facility] (Internal) Complete [address] [place] [address] (Work Place) Notes: 10/2012 Vaccine List Notes: refuses flu shots and pne umonia Social History Tobacco Smoking Status Former Smoker Have you been exposed to chemicals Y 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 What is your code status? 0 What was the date of your most 04/28/2020 recent tobacco screening? Do you have an advanced directive? N What is your exercise level? 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 quit 2007, 1ppd aver age Live alone or with others? with others Notes: adama es with spouse What is your level of alcohol None Notes: former use consumption? Do you have any pets? Y Notes: horse Language Difficulties No Notes: [place] Are you deaf or do you have serious N difficulty hearing? What is your current pack years? 30ormorepackyears Are you passively exposed to Y smoke? What is your level of caffeine Moderate Notes: 2 cups tea 2 sodas consumption? Family History Relation Problem Onset Age of Age Notes Mother Diabetes mellitus (No N/A (No Notes) Information) Mother Heart disease (No N/A (No Notes) Information) Father Heart disease (No N/A (No Notes) Information) Sister Malignant tumor of (No N/A breast Information) Brother Essential (No N/A (No Notes) hypertension Information) Brother Heart disease (No N/A (No Notes) Information) Maternal Grandfather Heart disease (No N/A (No No angelo) Information) Son Essential (No N/A (No Notes) hypertension Information) Paternal Grandfather Heart disease (No N/A (No No angelo) Information) Functional Status No Impairment. Past Encounters 11/03/2020 Cardiomyopathy Samir Rodriguez MD: [address], [place] [id number], Ph. History of Present Illness None recorded. Review of Systems None recorded. Physical Exam None recorded.
== END 2020-12-09 12:58 | disposition home or self-care (01) ==
LOC: LBO 12:57
PROVIDERS: PCP Family Medicine; Visit Provider Family Medicine
DX: R06.02 Shortness of breath (principal); E87.1 Hypo-osmolality and hyponatremia
CPT/HCPCS: 36415; 80048; 83880; 85025

== ENCOUNTER 2020-12-18 03:27 | Outpatient (CLI) | payer MEDICARE, SELFPAY ==
[2020-12-18 13:07] LABS: BUN 21 mg/dL (7-18); CREATININE 1.6 mg/dL (0.70-1.30); Calcium 8.7 mg/dL (8.5-10.1); Chloride 99 mmol/L (98-107); Estimated GFR 42.95 (mL/min/1.73m2); Glucose 111 mg/dL (74-106); Potassium 3.4 mmol/L (3.5-5.1); Sodium 143 mmol/L (136-145)
[2020-12-18 19:34] LABS: NT-proBNP 2840 pg/mL (<300)
== END 2020-12-18 03:28 | disposition home or self-care (01) ==
LOC: LOS 03:27
PROVIDERS: PCP Family Medicine; Visit Provider Family Medicine
DX: E87.1 Hypo-osmolality and hyponatremia (principal); R06.02 Shortness of breath
CPT/HCPCS: 36415; 80048; 83880

== ENCOUNTER 2020-12-25 03:08 | Outpatient (CLI) | payer MEDICARE, SELFPAY ==
[2020-12-25 13:31] LABS: BUN 30 mg/dL (7-18); CREATININE 1.7 mg/dL (0.70-1.30); Calcium 8.8 mg/dL (8.5-10.1); Chloride 100 mmol/L (98-107); Estimated GFR 40.04 (mL/min/1.73m2); Glucose 107 mg/dL (74-106); NT-proBNP 2762 pg/mL (<300); Potassium 3.8 mmol/L (3.5-5.1); Sodium 141 mmol/L (136-145)
== END 2020-12-25 03:09 | disposition home or self-care (01) ==
LOC: LOS 03:08
PROVIDERS: PCP Family Medicine; Visit Provider Family Medicine
DX: R06.02 Shortness of breath (principal); E87.1 Hypo-osmolality and hyponatremia
CPT/HCPCS: 36415; 80048; 83880

== ENCOUNTER 2020-12-31 01:30 | Outpatient (CLI) | payer MEDICARE, SELFPAY ==
--- NOTE | 2020-12-31 07:45 | DI.CT_ITS ---
Exam(s) CT CHEST WO EXAM: CT CHEST WO CLINICAL HISTORY: hemoptysis,LUNG NODULE, R91.1. TECHNIQUE: Multi planar reconstructions were performed. CONTRAST MATERIAL: None FINDINGS: CHEST: LUNGS: Hyperinflation again noted posteriorly in left lower lobe there is a subpleural infiltrate preet suring 1.5 x 0.7 cm (series 2/image 34). This was not evident on the prior LDCT study of 03/08/2018. Some platelike atelectasis in lingular segment is again noted. Interstitial disease in the right l ower lobe is again noted as well as some pleural based bullae which appear unchanged and without flui d therein. There are no pleural effusions. MEDIASTINUM: There is no obvious hilar nor mediastinal adenopathy. Visualized thyroid unremarkable.No obvious axillary adenopathy CARDIAC: Heart size is normal. There is no pericardial effusion.Moderate coronary artery calcificati on. Caliber of the thoracic aorta is upper normal. VISUALIZED UPPER ABDOMEN:No significant adrenal masses OSSEOUS: No significant osseous lesions.. IMPRESSION: 1. Compared to the prior CT scan of 03/08/2018 there is a single new finding which is a small area of subtle subpleural infiltrate in the left lower lobe measuring approximately 1.5 by 0.7 cm, not assoc iated with pleural effusion nor obvious adenopathy 2. Interstitial disease again noted, most evident in the right lower lobe. 3. RADIATION DOSE DELIVERED: 500.81mGy.cm Total DLP DATA REPOSITORY: All CT scans at this facility are submitted to the National Radiology Data Registry (NRDR) Dose Index Registry (DIR) with the [employer] (A[employer]). RADIATION OPTIMIZATION: All CT scans at this facility use at least one of these dose optimization te chniques: automated exposure control; mA and/or kV adjustment per patient size (includes targeted exa ms where dose is matched to clinical indication); or iterative reconstruction.
== END 2020-12-31 01:50 ==
PROVIDERS: PCP Family Medicine; Visit Provider Family Medicine
DX: R91.1 Solitary pulmonary nodule (principal); R91.8 Other nonspecific abnormal finding of lung field; R04.2 Hemoptysis; J84.89 Other specified interstitial pulmonary diseases
CPT/HCPCS: 71250

== ENCOUNTER 2021-02-18 09:49 | Outpatient (CLI) | payer OTHER, SELFPAY | END 2021-02-18 09:50 | disposition home or self-care (01) | PROVIDERS: PCP Family Medicine; Visit Provider Student in an Organized Health Care Education/Training Program | DX: J96.90 Respiratory failure, unspecified, unspecified whether with hypoxia or hypercapnia (principal) | CPT/HCPCS: 94762 ==

== ENCOUNTER 2021-06-09 03:09 | Outpatient (CLI) | payer OTHER, SELFPAY ==
--- NOTE | 2021-06-09 13:38 | DI.CT_ITS ---
Exam(s) CT CHEST WO EXAM: CT CHEST WO CLINICAL HISTORY: f/u new pulmonary nodule on last scan,r91.1 TECHNIQUE: Imaging Protocol: Axial computed tomography images with coronal and sagittal reformatted images were created and reviewed CONTRAST MATERIAL: Noncontrast COMPARISON: CT CT CHEST WO from 12/31/2020 FINDINGS: The exam is somewhat limited by respiratory motion. Tracheobronchial tree: No bronchiectasis or mucous plugging. Mediastinum and [place]: Stable small mediastinal lymph nodes. Prominent pulmonary arteries. Pulmonary parenchyma: Moderate emphysematous changes and interlobular septal thickening throughout. A telectasis near the right major fissure. Left apical scarring. Increased prominence of the area of in creased density in the medial left lower lobe, now measuring roughly 13 x 17 millimeters. Adjacent 3 millimeter nodule. Stable small perifissural nodules on the left. Pleura: No effusion or pneumothorax. Heart: The heart is mildly dilated, greatest dilatation of the right atrium.. Coronary artery calcif ications are seen. Aorta: Thoracic aorta non-dilated. Mild atherosclerotic changes. Upper abdomen: Unremarkable. Bones: Mild degenerative changes. Soft tissues: Unremarkable. IMPRESSION: Increased prominence of the peripheral density in the medial left lower lobe. The appearance is more masslike when compared with the previous exam. PET CT is recommended for further evaluation. RADIATION DOSE DELIVERED: 483.36mGy.cm Total DLP DATA REPOSITORY: All CT scans at this facility are submitted to the National Radiology Data Registry (NRDR) Dose Index Registry (DIR) with the [employer] (ACR). RADIATION OPTIMIZATION: All CT scans at this facility use at least one of these dose optimization te chniques: automated exposure control; mA and/or kV adjustment per patient size (includes targeted exa ms where dose is matched to clinical indication); or iterative reconstruction.
== END 2021-06-09 03:29 ==
PROVIDERS: PCP Family Medicine; Visit Provider Student in an Organized Health Care Education/Training Program
DX: R91.1 Solitary pulmonary nodule (principal); J43.8 Other emphysema; J98.11 Atelectasis; R91.8 Other nonspecific abnormal finding of lung field
CPT/HCPCS: 71250

== ENCOUNTER 2021-08-25 09:33 | Outpatient (CLI) | payer OTHER, SELFPAY ==
[2021-08-25 12:20] LABS: Abs Immature Grans 0.04 10^3/uL (0.0-0.06); Absolute Basophil Count 0.07 10^3/uL (0.0-0.2); Absolute Lymphocyte Count 1.09 10^3/uL (1.2-3.4); Absolute Neutrophil Count 4.78 10^3/uL (1.2-6.7); Eosinophils % 1.5; HCT 45.7 % (40.0-50.0); Immature Grans % 0.6; Lymphocytes % 16.3; MCH 28.5 pg (27.0-33.0); MCHC 30.6 % (32.0-36.0); MCV 93 fL (80-95); MPV 10.6 fL (8.0-11.0); Neutrophils % 71.6; Platelet Count 295 10^3/uL (130-400); RBC 4.91 10^6/uL (4.36-5.78); RDW 15.4 % (11.8-14.1); RDW-SD 51.6 fL; WBC 6.68 10^3/uL (4.4-10.8)
[2021-08-25 12:52] LABS: ALT 15 U/L (16-63); AST 28 U/L (15-37); Albumin 3.4 g/dL (3.4-5.0); Alkaline Phosphatase 65 U/L (46-116); Anion Gap 8.2 mmol/L (3-11); BUN 35 mg/dL (7-18); Bilirubin, Total 1.1 mg/dL (0.2-1.0); CO2 36.8 mmol/L (21.0-32.0); Calcium 9.1 mg/dL (8.5-10.1); Chloride 98 mmol/L (98-107); Glucose 132 mg/dL (74-106); Potassium 3.3 mmol/L (3.5-5.1); Sodium 143 mmol/L (136-145); Total Protein 7.4 g/dL (6.4-8.2)
== END 2021-08-25 09:34 | disposition home or self-care (01) ==
LOC: LOS 09:34
PROVIDERS: PCP Family Medicine; Visit Provider Family Medicine
DX: D64.9 Anemia, unspecified (principal); R10.9 Unspecified abdominal pain
CPT/HCPCS: 36415; 80053; 85025

== ENCOUNTER → 2021-09-30 02:19 | Outpatient (CLI) | payer OTHER, SELFPAY ==
--- NOTE | 2021-09-30 07:00 | DI.CT_ITS ---
Exam(s) CT CHEST WO EXAM: CT CHEST WO CLINICAL HISTORY: reassess lung nodule,r91.1 TECHNIQUE: Imaging Protocol: Axial computed tomography images with coronal and sagittal reformatted images were created and reviewed CONTRAST MATERIAL: Noncontrast COMPARISON: CT CT CHEST WO from 06/09/2021 FINDINGS: Tracheobronchial tree: No bronchiectasis or mucous plugging. Mediastinum and [place]: No dominant adenopathy or fluid collection. Pulmonary parenchyma: Emphysematous and fibrotic changes. No consolidation or dominant measurable ma ss. Previously questioned density now appears to represent an area of scarring. No new or suspiciou s nodules. Pulmonary arteries: Prominent. Pleura: No effusion or pneumothorax. Heart: The heart is dilated. coronary artery calcifications are seen. Aorta: Thoracic aorta non-dilated. Upper abdomen: Unremarkable. Lymph nodes: Within normal limits. Bones: Unremarkable for age. Soft tissues: Unremarkable. IMPRESSION: Previously questioned area of nodular density in the posterior left lower lobe now has the appearance of scarring. There are underlying emphysematous and fibrotic changes. RADIATION DOSE DELIVERED: 474.93mGy.cm Total DLP DATA REPOSITORY: All CT scans at this facility are submitted to the National Radiology Data Registry (NRDR) Dose Index Registry (DIR) with the [employer] (ACR). RADIATION OPTIMIZATION: All CT scans at this facility use at least one of these dose optimization te chniques: automated exposure control; mA and/or kV adjustment per patient size (includes targeted exa ms where dose is matched to clinical indication); or iterative reconstruction.
== END ==
PROVIDERS: PCP Family Medicine; Visit Provider Family Medicine
DX: R91.1 Solitary pulmonary nodule (principal)
CPT/HCPCS: 71250

== ENCOUNTER 2021-12-06 02:53 | Outpatient (CLI) | payer OTHER, SELFPAY ==
[2021-12-06 12:19] LABS: HCT 44.4 % (40.0-50.0); HGB 14.1 g/dL (13.5-17.5); MCH 30.3 pg (27.0-33.0); MCHC 31.8 % (32.0-36.0); MCV 95 fL (80-95); MPV 10.6 fL (8.0-11.0); Platelet Count 268 10^3/uL (130-400); RBC 4.66 10^6/uL (4.36-5.78); RDW 17.2 % (11.8-14.1); RDW-SD 59.4 fL; WBC 7.06 10^3/uL (4.4-10.8)
[2021-12-06 12:34] LABS: ALT 15 U/L (16-63); AST 21 U/L (15-37); Albumin 3.3 g/dL (3.4-5.0); Alkaline Phosphatase 69 U/L (46-116); Anion Gap 9.9 mmol/L (3-11); BUN 34 mg/dL (7-18); Bilirubin, Total 1.3 mg/dL (0.2-1.0); CO2 32.1 mmol/L (21.0-32.0); CREATININE 2.3 mg/dL (0.70-1.30); Calcium 8.9 mg/dL (8.5-10.1); Chloride 101 mmol/L (98-107); Estimated GFR 29.62 (mL/min/1.73m2); Glucose 127 mg/dL (74-106); Sodium 143 mmol/L (136-145); Total Protein 7.1 g/dL (6.4-8.2)
== END 2021-12-06 02:54 | disposition home or self-care (01) ==
LOC: LOS 02:53
PROVIDERS: PCP Family Medicine; Visit Provider Family Medicine
DX: R53.83 Other fatigue (principal); R10.9 Unspecified abdominal pain
CPT/HCPCS: 36415; 80053; 85027

== ENCOUNTER 2021-12-09 11:14 | Inpatient (IN) | payer OTHER, SELFPAY ==
[2021-12-09] VITALS (27 sets, daily range): BP systolic 78–112; BP diastolic 45–90; PULSE 80–144; RESP 12–31; TEMP 36.3; O2SAT 80–100
--- NOTE | 2021-12-09 11:30 | RT.EKG_ITS ---
APPROVED REPORT Exam: Resting ECG Reason for Exam: sob Patient Location: E HR:144 bpm ECG Measurements Heart Rate 144 AXIS OR [id number] P [id number] QRSd 88 QRS 214 QT 283 T 68 QTc 438 Conclusion Atrial fibrillation...V-rate 102-190, irreg A-activity Probable right ventricular hypertrophy...prominent R or R' w/ RAD or TEOFILO
[2021-12-09] MEDS: Albuterol/Ipratropium 3 ML UPD VIAL (11:52)
[2021-12-09 12:09] LABS: Abs Immature Grans 0.08 10^3/uL (0.0-0.06); Absolute Basophil Count 0.04 10^3/uL (0.0-0.2); Absolute Eosinophil Count 0.01 10^3/uL (0.0-0.7); Absolute Lymphocyte Count 0.63 10^3/uL (1.2-3.4); Absolute Monocyte Count 0.87 10^3/uL (0.1-0.8); Absolute Neutrophil Count 4.05 10^3/uL (1.2-6.7); Basophils % 0.7; Eosinophils % 0.2; HGB 13.6 g/dL (13.5-17.5); Immature Grans % 1.4; Lymphocytes % 11.1; MCH 30.2 pg (27.0-33.0); MCHC 30.9 % (32.0-36.0); MCV 98 fL (80-95); MPV 9.9 fL (8.0-11.0); Monocytes % 15.3; Neutrophils % 71.3; Nucleated RBC 0.7 % (0.0-0.3); Platelet Count 202 10^3/uL (130-400); RDW 17.2 % (11.8-14.1); RDW-SD 61.4 fL; WBC 5.68 10^3/uL (4.4-10.8)
--- NOTE | 2021-12-09 12:27 | ED.GENADUL_ITS ---
Discharge Plan Disposition [facility] Condition: Serious Discharge Details Chief Complaint: RespSymp Clinical Impression: COVID-19, Acute exacerbation of chronic obstructive pulmonary disease, Hypoxia, Atrial fibrillation Primary Care Provider: Anthony Ashton ED Provider: Dave Ferris Home Meds and New Rx's Prescriptions: No Action Eliquis 5 mg tablet 5 mg PO BID Qty: 60 3RF Trelegy Ellipta 100-62.5-25 mcg blister with device See Rx Instructions .ROUTE .COMPLEX Qty: 28 5RF Dose Instruction: USE 1 INHALATION BY MOUTH DAILY Rx Instructions: USE 1 INHALATION BY MOUTH DAILY bumetanide 2 mg tablet 1 mg PO DAILY Qty: 90 2RF Rx Instructions: dose reduction 08/24/21 cetirizine [Zyrtec] 10 mg tablet 10 mg PO DAILY Qty: 90 2RF ipratropium bromide 21 mcg (0.03 %) spray,non-aerosol 2 spray intranasal BID Qty: 30 3RF Rx Instructions: administer into each nostril levalbuterol tartrate [Xopenex HFA] 45 mcg/actuation HFA aerosol inhaler 2 inh inhalation Q6H PRN (Reason: shortness of breath) Qty: 15 9RF metoprolol succinate 100 mg tablet extended release 24 hr 200 mg PO DAILY Qty: 180 3RF omeprazole magnesium [Prilosec OTC] 20 mg tablet,delayed release (DR/EC) 20 mg PO DAILY PRN (Reason: dyspepsia) Qty: 90 2RF potassium chloride [Klor-Con M20] 20 mEq tablet,ER particles/crystals 20 meq PO DAILY Qty: 30 2RF Trelegy Ellipta 100-62.5-25 mcg blister with device 62.5 ea INHALATION PRN PRN Medical Decision Making 1230 --71-year-old male with multiple medical problems including history of COPD, pulmonary fibrosis, pulmonary hypertension, A. fib, here with shortness of breath and cough over the past 2 days. Patient in respiratory distress, cyanotic, tachypneic and hypoxic on arrival. Nonrebreather high flow oxygen initiated. Patient was given DuoNeb treatment. Cyanosis improved. Patient notes feeling better. Continues to have diminished breath sounds left lung with scattered rales. Concern for acute COPD exacerbation. Patient also had positive COVID antigen test earlier today -although apparently also had 2 negative antigen test today. Consider COVID and will check stat PCR. I will initiate treatment for COPD and potential COVID with dexamethasone 6 mg IV. Consider cardiac etiology. EKG was reviewed and interpreted by me: Patient in atrial fibrillation with rapid ventricular response, 144 bpm, no STEMI. Consider acute CHF exacerbation. Plan to check BNP. Consider pulmonary embolism. I will check D-dimer. -- Labs reviewed: Age-adjusted D-dimer negative. Patient is positive for COVID. I will initiate treatment with remdesivir IV. BNP is elevated. Patient does have history of dilated cardiomyopathy. -- I spoke with Dr. Clark and discussed ED presentation course, requested patient be admitted to the ICU, reports that there are no ICU beds immediately available. Plan to hold in the ED until bed available or patient improves clinically. She does recommend giving metoprolol 2.5 mg IV for his tachycardia. 1644 --patient reassessed and heart rate improved now 100s to 110s. Patient saturating in the low 90s in no respiratory distress on 5 L nasal cannula. I called and spoke with Dr. Clark, she will admit the patient to medical surgical floor. Lab Data Lab results reviewed: Yes I reviewed the patient's lab results. Labs: Laboratory Tests Range/Units 12/09/21 12/09/21 12/09/21 12:00 12:00 12:00 WBC (4.4-10.8) 10^3/uL 5.68 RBC (4.36-5.78) 10^6/uL 4.50 Hgb (13.5-17.5) g/dL 13.6 Hct (40.0-50.0) % 44.0 MCV (80-95) fL 98 H MCH (27.0-33.0) pg 30.2 MCHC (32.0-36.0) % 30.9 L RDW (11.8-14.1) % 17.2 H Plt Count (130-400) 10^3/uL 202 MPV (8.0-11.0) fL 9.9 Immature Gran % 1.4 Neutrophils % 71.3 Lymphocytes % 11.1 Monocytes % 15.3 Eosinophils % 0.2 Basophils % 0.7 Nucleated RBC % (0.0-0.3) % 0.7 H Absolute Neutrophils (1.2-6.7) 10^3/uL 4.05 Absolute Lymphocytes (1.2-3.4) 10^3/uL 0.63 L Absolute Monocytes (0.1-0.8) 10^3/uL 0.87 H Absolute Eosinophils (0.0-0.7) 10^3/uL 0.01 Absolute Basophils (0.0-0.2) 10^3/uL 0.04 D-Dimer (<500) ng/mlFEU Sodium (136-145) mmol/L 141 Potassium (3.5-5.1) mmol/L 3.6 Chloride (98-107) mmol/L 99 Carbon Dioxide (21.0-32.0) mmol/L 32.1 H Anion Gap (3-11) mmol/L 9.9 BUN (7-18) mg/dL 32 H Creatinine (0.70-1.30) mg/dL 2.2 H Est GFR (CKD-EPI 2020) (mL/min/1.73m2) 31.24 Glucose (74-106) mg/dL 96 Calcium (8.5-10.1) mg/dL 8.9 Magnesium (1.8-2.4) mg/dL 1.9 Total Bilirubin (0.2-1.0) mg/dL 1.1 H AST (15-37) U/L 32 ALT (16-63) U/L 14 L Alkaline Phosphatase (46-116) U/L 71 Troponin I (<or=60) ng/L < 50 NT-Pro-B Natriuret Pep (<300) pg/mL 6183 H Total Protein (6.4-8.2) g/dL 7.3 Albumin (3.4-5.0) g/dL 3.4 COVID-19 Source SARS-CoV-2 (PCR) (Negative) Influenza Type A (PCR) (Negative) Influenza Type B (PCR) (Negative) RSV (PCR) (Negative) Range/Units 12/09/21 12/09/21 12/09/21 12:30 12:50 15:26 WBC (4.4-10.8) 10^3/uL RBC (4.36-5.78) 10^6/uL Hgb (13.5-17.5) g/dL Hct (40.0-50.0) % MCV (80-95) fL MCH (27.0-33.0) pg MCHC (32.0-36.0) % RDW (11.8-14.1) % Plt Count (130-400) 10^3/uL MPV (8.0-11.0) fL Immature Gran % Neutrophils % Lymphocytes % Monocytes % Eosinophils % Basophils % Nucleated RBC % (0.0-0.3) % Absolute Neutrophils (1.2-6.7) 10^3/uL Absolute Lymphocytes (1.2-3.4) 10^3/uL Absolute Monocytes (0.1-0.8) 10^3/uL Absolute Eosinophils (0.0-0.7) 10^3/uL Absolute Basophils (0.0-0.2) 10^3/uL D-Dimer (<500) ng/mlFEU 661 H Sodium (136-145) mmol/L Potassium (3.5-5.1) mmol/L Chloride (98-107) mmol/L Carbon Dioxide (21.0-32.0) mmol/L Anion Gap (3-11) mmol/L BUN (7-18) mg/dL Creatinine (0.70-1.30) mg/dL Est GFR (CKD-EPI 2020) (mL/min/1.73m2) Glucose (74-106) mg/dL Calcium (8.5-10.1) mg/dL Magnesium (1.8-2.4) mg/dL Total Bilirubin (0.2-1.0) mg/dL AST (15-37) U/L ALT (16-63) U/L Alkaline Phosphatase (46-116) U/L Troponin I (<or=60) ng/L < 50 NT-Pro-B Natriuret Pep (<300) pg/mL Total Protein (6.4-8.2) g/dL Albumin (3.4-5.0) g/dL COVID-19 Source Nasopharynx SARS-CoV-2 (PCR) (Negative) Positive A Influenza Type A (PCR) (Negative) Negative Influenza Type B (PCR) (Negative) Negative RSV (PCR) (Negative) Negative HPI General Mode of arrival: ambulatory . Date/Time Provider Initiated Documentation: 12/09/21 11:32 . Limitations to Documentation: no limitations . Information obtained by: patient . HPI Narrative: 71-year-old male with multiple medical problems including history of COPD on chronic home O2, pulmonary fibrosis, pulmonary hypertension, A. fib, here with shortness of breath and cough over the past 2 days. Patient notes he typically saturates in the 60s to low 90s. He notes desaturations with any ambulation. Over the past couple days has had worsening cough and shortness of breath. Symptoms severe on arrival. Improving now with neb treatment. He has no associated chest pain. He does note that he had 3 COVID test today 2 of which were negative and 1 which was positive. Patient notes chronic bilateral unchanged lower extremity edema right greater than left. He denies calf pain. Related Data Home Medications Medication Instructions Recorded Confirmed cetirizine 10 mg tablet (Zyrtec) 10 mg PO DAILY #90 tab-caps 08/02/21 12/09/21 ipratropium bromide 21 mcg (0.03 2 spray intranasal BID #30 mL 08/02/21 12/09/21 %) nasal spray levalbuterol tartrate 45 2 inh inhalation Q6H PRN shortness 08/02/21 12/09/21 mcg/actuation aerosol inhaler of breath #15 grams (Xopenex HFA) metoprolol succinate 100 mg 200 mg PO DAILY #180 tabs 08/02/21 12/09/21 tablet,extended release 24 hr omeprazole magnesium 20 mg 20 mg PO DAILY PRN dyspepsia #90 08/02/21 12/09/21 tablet,delayed release (Prilosec tabs OTC) bumetanide 2 mg tablet 1 mg PO DAILY #90 tabs 08/24/21 12/09/21 fluticasone fur. 100 mcg-umeclid See Rx Instructions .Route 10/06/21 12/09/21 62.5 mcg-vilant 25 mcg .COMPLEX #28 ea inhalat.powder (Trelegy Ellipta) apixaban 5 mg tablet (Eliquis) 5 mg PO BID #60 tabs 12/01/21 12/09/21 potassium chloride 20 mEq 20 meq PO DAILY #30 tabs 12/07/21 12/09/21 tablet,extended release(part/cryst) (Klor-Con M) fluticasone fur. 100 mcg-umeclid 62.5 ea inhalation PRN PRN 12/09/21 12/09/21 62.5 mcg-vilant 25 mcg inhalat.powder (Trelegy Ellipta) Previous Rx's Medication Instructions Recorded cetirizine 10 mg tablet (Zyrtec) 10 mg PO DAILY #90 tab-caps 08/02/21 ipratropium bromide 21 mcg (0.03 2 spray intranasal BID #30 mL 08/02/21 %) nasal spray levalbuterol tartrate 45 2 inh inhalation Q6H PRN shortness 08/02/21 mcg/actuation aerosol inhaler of breath #15 grams (Xopenex HFA) metoprolol succinate 100 mg 200 mg PO DAILY #180 tabs 08/02/21 tablet,extended release 24 hr omeprazole magnesium 20 mg 20 mg PO DAILY PRN dyspepsia #90 08/02/21 tablet,delayed release (Prilosec tabs OTC) bumetanide 2 mg tablet 1 mg PO DAILY #90 tabs 08/24/21 fluticasone fur. 100 mcg-umeclid See Rx Instructions .Route 10/06/21 62.5 mcg-vilant 25 mcg .COMPLEX #28 ea inhalat.powder (Trelegy Ellipta) apixaban 5 mg tablet (Eliquis) 5 mg PO BID #60 tabs 12/01/21 potassium chloride 20 mEq 20 meq PO DAILY #30 tabs 12/07/21 tablet,extended release(part/cryst) (Klor-Con M) Allergies Allergy/AdvReac Type Severity Reaction Status Date / Time No Known Allergies Allergy Verified 12/01/21 11:35 General Stated Complaint: RespSymp TONI: 1 Review of Systems All systems reviewed & are unremarkable except as noted in HPI and below Constitutional Constitutional: Denies chills and Denies fever(s) Cardiovascular Cardiovascular: Denies chest pain Respiratory Respiratory: Reports as per HPI PFSH All Active Problems (Updated 12/09/21 @ 16:55 by Dave Ferris MD) COVID-19 (Acute) Acute exacerbation of chronic obstructive pulmonary disease (Acute) Hypoxia (Acute) Atrial fibrillation (Chronic) Peripheral edema (Acute) Low blood pressure (Acute) Pulmonary nodule (Acute) Chronic rhinitis (Acute) Respiratory failure (Acute) Dilated cardiomyopathy (Acute) Right ventricular failure (Acute) Pulmonary fibrosis (Acute) Pulmonary hypertension (Acute) Hemoptysis (Acute) SOB (shortness of breath) (Acute) Viral pharyngitis (Acute) Low blood pressure (Acute) Vasomotor rhinitis (Acute) Paroxysmal atrial fibrillation (Chronic 06/06/14) Essential hypertension (Chronic 06/17/16) Atrial fibrillation (Chronic 10/12/12) In 07/29/12 for atrial fib. Now in, 10-12-[address] Samir Rodriguez. Chronic obstructive lung disease (Chronic) Medical History Abscess Family History Mother , 64 Diabetes Heart disease Father , 80 Heart disease Sister , 58 Breast cancer Brother , 79 Essential hypertension Heart disease Maternal Grandfather Heart disease Son Essential hypertension Daughter No problems noted. Paternal Grandfather Heart disease Maternal Grandmother , 90 Stroke Paternal Grandmother , 90+ Heart disease Social History Smoking/Tobacco Use Status: Former Tobacco Use tobacco type: cigarettes Quit Date: 02/13/11 Tobacco: How many years used: 40 Second Hand Exposure: Yes Smoking risk assessment performed?: Yes Alcohol Intake: former Drug use: Never Substance use type: does not use Caregiver/Support person: No Household members: spouse Housing: house Communication Needs: None and Corrective Lenses Do you need help understanding health information?: Rarely Pets and animals: No Sexually active: No Do you think of yourself as: straight/heterosexual Current gender identity: male What is your relationship status?: How often do you talk on the phone with friends or family?: three or more times per week How often do you get together with friends or relatives?: once per week How often do you attend zoroastrianism or voodoo services?: 1-3 times per year Do you belong to any clubs or organized social groups?: no Panel score (0-1 are the most socially isolated patients): 2 What type of physical activity do you participate in: none Frequency: does not exercise Irena/Alevism: Adventist Special irena needs: No Seatbelt use: sometimes Helmet use: No Drive intox or ride w/intox driver starting gate: No Do you feel safe at home: Yes Do you feel safe in your relationship?: Yes Exam Const General: cooperative and acute distress respiratory Orientation: alert and awake [facility] Mouth: moist mucous membranes Eyes Conjunctivae: normal conjunctivae Sclera: normal sclerae EOM: EOM intact bilaterally Neck Neck: trachea midline and supple Resp Effort & Inspection: labored and respiratory distress Auscultation: diminished lung sounds on the left and rales bilaterally Cardio Rate: bradycardic Rhythm: abnormal rhythm GI Palpation: soft, not firm, no guarding, no masses, not rigid and nontender Skin General skin exam: no rashes or lesions noted Neuro General: patient alert, patient awake and tone normal Extrem General: no calf tenderness and edema Laterality: bilateral (rt>lt) Psych Appearance: grossly normal Mental Status: mental status grossly normal Course Vital Signs Vital signs: Vital Signs Pulse 135 H 12/09/21 11:37 Respiratory Rate 24 12/09/21 11:37 Blood Pressure 105/62 12/09/21 11:37 Pulse Oximetry 89 L 12/09/21 11:37 Pulse 135 H 12/09/21 11:37 Respiratory Rate 24 12/09/21 11:37 Respiratory Effort Labored 12/09/21 11:59 Respiratory Depth Shallow 12/09/21 11:54 Blood Pressure 105/62 12/09/21 11:37 Blood Pressure Position Sitting 12/09/21 11:37 Pulse Oximetry 89 L 12/09/21 11:37 Oxygen Delivery Method Non-Rebreather 12/09/21 11:37 Oxygen Flow Rate 15 12/09/21 11:37 Lab/Test Results Lab/Test Results: Laboratory Tests Range/Units 12/09/21 12:00 WBC (4.4-10.8) 10^3/uL 5.68 RBC (4.36-5.78) 10^6/uL 4.50 Hgb (13.5-17.5) g/dL 13.6 Hct (40.0-50.0) % 44.0 MCV (80-95) fL 98 H MCH (27.0-33.0) pg 30.2 MCHC (32.0-36.0) % 30.9 L RDW (11.8-14.1) % 17.2 H Plt Count (130-400) 10^3/uL 202 MPV (8.0-11.0) fL 9.9 Immature Gran % 1.4 Neutrophils % 71.3 Lymphocytes % 11.1 Monocytes % 15.3 Eosinophils % 0.2 Basophils % 0.7 Nucleated RBC % (0.0-0.3) % 0.7 H Absolute Neutrophils (1.2-6.7) 10^3/uL 4.05 Absolute Lymphocytes (1.2-3.4) 10^3/uL 0.63 L Absolute Monocytes (0.1-0.8) 10^3/uL 0.87 H Absolute Eosinophils (0.0-0.7) 10^3/uL 0.01 Absolute Basophils (0.0-0.2) 10^3/uL 0.04 Critical Care Time Critical Care Time Critical Care Time: Yes Total Critical Care Time: 50 Attestation: I spent greater than 50 minutes addressing this patient's immediate life threats. Please see MDM section of note. This time was spent engaged in work directly related to the patient's care, exclusive of separate procedures, and failure to initiate these interventions would have likely resulted in clinically significant or life threatening deterioration in the patient's condition.
--- NOTE | 2021-12-09 12:30 | DI.RAD_ITS ---
Exam(s) XR PORTABLE CHEST AP EXAM: XR PORTABLE CHEST AP CLINICAL HISTORY: cough, copd, ?covid TECHNIQUE: 2D digital imaging was performed of the chest. Two images were obtained. AP views were obtained. COMPARISON: CR XR CHEST 2V PA LATERAL from 12/08/2020 FINDINGS: MEDIASTINUM: Normal. HEART: Normal. PULMONARY VASCULATURE: Normal. LUNGS: No focal consolidating infiltrates are seen. There are diffuse increased interstitial marking s bilaterally. PLEURAL SPACE: No pleural effusion or pneumothorax. BONE:Within normal limits for the patient's age. OTHER FINDINGS:Normal. IMPRESSION: Diffuse increased interstitial lung markings. This may represent pulmonary edema, pneumonia or progr essive pulmonary fibrosis. Please correlate clinically. DATA REPOSITORY: RADIATION DOSE DELIVERED:
[2021-12-09 12:39] LABS: ALT 14 U/L (16-63); AST 32 U/L (15-37); Albumin 3.4 g/dL (3.4-5.0); Alkaline Phosphatase 71 U/L (46-116); Anion Gap 9.9 mmol/L (3-11); BUN 32 mg/dL (7-18); Bilirubin, Total 1.1 mg/dL (0.2-1.0); CO2 32.1 mmol/L (21.0-32.0); CREATININE 2.2 mg/dL (0.70-1.30); Calcium 8.9 mg/dL (8.5-10.1); Chloride 99 mmol/L (98-107); Estimated GFR 31.24 (mL/min/1.73m2); Glucose 96 mg/dL (74-106); Magnesium 1.9 mg/dL (1.8-2.4); Potassium 3.6 mmol/L (3.5-5.1); Sodium 141 mmol/L (136-145); Total Protein 7.3 g/dL (6.4-8.2); Troponin I < 50 ng/L (<or=60)
[2021-12-09] MEDS: Dexamethasone 10 MG/ML VIAL 6 MG IVP (12:54)
[2021-12-09] MEDS: Albuterol/Ipratropium 3 ML UPD VIAL UPD (13:01)
[2021-12-09 13:10] LABS: NT-proBNP 6183 pg/mL (<300)
[2021-12-09 13:12] LABS: Influenza A PCR Negative (Negative); Influenza B PCR Negative (Negative); RSV PCR Negative (Negative)
[2021-12-09 13:14] LABS: COVID-19 PCR Positive (Negative); Source Nasopharynx
[2021-12-09 13:25] LABS: D-Dimer 661 ng/mlFEU (<500)
[2021-12-09] MEDS: REMDESIVIR 200 MG in Normal Saline 250 ML 250 MG IVPB (14:19)
[2021-12-09 15:53] LABS: Troponin I < 50 ng/L (<or=60)
--- NOTE | 2021-12-09 17:04 | W.PM.HP.N ---
Date of service: 12/09/21 Time of Service: 17:04 Assessment and Plan Assessment and plan (1) Acute on chronic respiratory failure with hypoxia: Status: Acute Assessment and plan: Due to COVID-19 causing acute exacerbation of COPD in addition to a possible 2ndary bacterial pneumonia. Treat with remdesivir, dexamethasone, baricitinib. Check CRP, procalcitonin, ferritin. Encourage IS/acapella. Transition to humidified heated high flow NC and CPAP at night. Supplement vitamin C, D, zinc. Melatonin. DNR/DNI. Already on anticoagulation with eliquis. R/o DVT RLE. (2) COVID-19: Status: Acute Assessment and plan: As above (3) Acute exacerbation of chronic obstructive pulmonary disease: Status: Acute Assessment and plan: As above (4) Chronic atrial fibrillation with rapid ventricular response: Status: Acute Assessment and plan: Continue home metoprolol. Will write for prn IV lopressor. (5) Pneumonia: Status: Acute Assessment and plan: Due to COVID-19. Bacterial component ruled out with a negative procalcitonin - no role for abx. (6) Pulmonary hypertension: Status: Chronic Assessment and plan: Provide CPAP at night. Monitor volume status. (7) Dilated cardiomyopathy: Status: Chronic Assessment and plan: Continue home therapy, including bumex. (8) Discharge planning issues: Status: Acute Assessment and plan: DNR/DNI History of Present Illness History of Present Illness Chief Complaint: shortness of breath Narrative: Mr Martins is a 71 year old male with PMHx of O2-dependent COPD (normally on 3L of O2 by [place]), pulmonary fibrosis, dilated Cardiomyopathy, RV failure, Afib, who presented to [facility] ED after having a positive home COVID-19 test this morning with two days of shortness of breath, found to be hypoxic to 50-60% (unclear on what oxygen modality/FiO2) and in rapid Afib with HR in 140s. His ER COVID-19 PCR was also positive. He initially required a nonrebreather. He is now on 5L of O2 by [place]. He received duoneb, remdesivir, and dexamethasone 6 mg IV. He also received IV lopressor for rapid Afib. His HR is now down to 100-111s. Hospitalist admission to the medical surgical floor was requested. The patient states that he has felt weak and SOB since yesterday. He states he couldn't do anything with his arms. Denies fever, chills, chest pain. He endorses a chronically runny nose. Denies sore thoat. Endorses a cough productive of clear sputum. Denies n/v/diarrhea. States his stomach has been growling for 6 months. States his RLE has been more swollen than the L for years and that he has never had blood clots nor an ultrasound of that leg. Review of Systems All systems reviewed & are unremarkable except as noted in HPI and below PFSH All Active Problems (Updated 12/09/21 @ 17:15 by Letty Clark MD) Discharge planning issues (Acute) Pneumonia (Acute) Chronic atrial fibrillation with rapid ventricular response (Acute) Acute on chronic respiratory failure with hypoxia (Acute) COVID-19 (Acute) Acute exacerbation of chronic obstructive pulmonary disease (Acute) Hypoxia (Acute) Atrial fibrillation (Chronic) Peripheral edema (Acute) Low blood pressure (Acute) Pulmonary nodule (Acute) Chronic rhinitis (Acute) Respiratory failure (Acute) Dilated cardiomyopathy (Chronic) Right ventricular failure (Acute) Pulmonary fibrosis (Acute) Pulmonary hypertension (Chronic) Hemoptysis (Acute) SOB (shortness of breath) (Acute) Viral pharyngitis (Acute) Low blood pressure (Acute) Vasomotor rhinitis (Acute) Paroxysmal atrial fibrillation (Chronic 06/06/14) Essential hypertension (Chronic 06/17/16) Atrial fibrillation (Chronic 10/12/12) In 07/29/12 for atrial fib. Now in, 10-12-[address] Samir Rodriguez. Chronic obstructive lung disease (Chronic) Medical History Abscess Family History Mother , 64 Diabetes Heart disease Father , 80 Heart disease Sister , 58 Breast cancer Brother , 79 Essential hypertension Heart disease Maternal Grandfather Heart disease Son Essential hypertension Daughter No problems noted. Paternal Grandfather Heart disease Maternal Grandmother , 90 Stroke Paternal Grandmother , 90+ Heart disease Social History Smoking/Tobacco Use Status: Former Tobacco Use tobacco type: cigarettes Quit Date: 02/13/11 Tobacco: How many years used: 40 Second Hand Exposure: Yes Smoking risk assessment performed?: Yes Alcohol Intake: former Drug use: Never Substance use type: does not use Caregiver/Support person: No Household members: spouse Housing: house Communication Needs: None and Corrective Lenses Do you need help understanding health information?: Rarely Pets and animals: No Sexually active: No Do you think of yourself as: straight/heterosexual Current gender identity: male What is your relationship status?: How often do you talk on the phone with friends or family?: three or more times per week How often do you get together with friends or relatives?: once per week How often do you attend mandaen or zoroastrian services?: 1-3 times per year Do you belong to any clubs or organized social groups?: no Panel score (0-1 are the most socially isolated patients): 2 What type of physical activity do you participate in: none Frequency: does not exercise Irena/Rastafari: Adventism Special irena needs: No Seatbelt use: sometimes Helmet use: No Drive intox or ride w/intox ice delivery driver: No Do you feel safe at home: Yes Do you feel safe in your relationship?: Yes Meds Allergies and Home Medications Allergies Allergy/AdvReac Type Severity Reaction Status Date / Time No Known Allergies Allergy Verified 12/01/21 11:35 Home Medications Medication Instructions Recorded Confirmed Type cetirizine 10 mg tablet (Zyrtec) 10 mg PO DAILY #90 tab-caps 08/02/21 12/09/21 Rx ipratropium bromide 21 mcg (0.03 2 spray intranasal BID #30 mL 08/02/21 12/09/21 Rx %) nasal spray levalbuterol tartrate 45 2 inh inhalation Q6H PRN shortness 08/02/21 12/09/21 Rx mcg/actuation aerosol inhaler of breath #15 grams (Xopenex HFA) metoprolol succinate 100 mg 200 mg PO DAILY #180 tabs 08/02/21 12/09/21 Rx tablet,extended release 24 hr omeprazole magnesium 20 mg 20 mg PO DAILY PRN dyspepsia #90 08/02/21 12/09/21 Rx tablet,delayed release (Prilosec tabs OTC) bumetanide 2 mg tablet 1 mg PO DAILY #90 tabs 08/24/21 12/09/21 Rx fluticasone fur. 100 mcg-umeclid See Rx Instructions .Route 10/06/21 12/09/21 Rx 62.5 mcg-vilant 25 mcg .COMPLEX #28 ea inhalat.powder (Trelegy Ellipta) apixaban 5 mg tablet (Eliquis) 5 mg PO BID #60 tabs 12/01/21 12/09/21 Rx potassium chloride 20 mEq 20 meq PO DAILY #30 tabs 12/07/21 12/09/21 Rx tablet,extended release(part/cryst) (Klor-Con M) fluticasone fur. 100 mcg-umeclid 62.5 ea inhalation PRN PRN 12/09/21 12/09/21 History 62.5 mcg-vilant 25 mcg inhalat.powder (Trelegy Ellipta) Exam Narrative Exam Narrative: General: Pleasant talkative Elderly male, A&Ox3, NAD, on 5L of O2 by [place] Neurological: A&ox3, [place], no focal deficits Psychiatric: Appropriate speech pattern/content Skin: Visible skin intact HEENT: Atraumatic, normocephalic, EOMI, MMM, clear oropharynx, no submandibular or cervical lymphadenopathy, no goiter or JVD Cardiovascular: irregularly irregular rhythm, mildly tachycardic, no m/r/g Lungs: CTAB/diminished breath sounds B Gastrointestinal: soft, nontender, nondistended Genitourinary: deferred Extremities: 2+ RLE edema, 1+ LLE edema, no c/c, pedal pulses difficult to palpate. Results Imaging Additional studies: CXR; Diffuse increased interstitial lung markings.? This may represent pulmonary edema, pneumonia or progressive pulmonary fibrosis.? Please correlate clinically.? Labs Result diagrams: 12/09/21 12:00 12/09/21 12:00 Labs: Laboratory Results - last 24 hr 12/09/21 12/09/21 12/09/21 12:00 12:00 12:00 WBC 5.68 RBC 4.50 Hgb 13.6 Hct 44.0 MCV 98 H MCH 30.2 MCHC 30.9 L RDW 17.2 H Plt Count 202 MPV 9.9 Immature Gran % 1.4 Neutrophils % 71.3 Lymphocytes % 11.1 Monocytes % 15.3 Eosinophils % 0.2 Basophils % 0.7 Nucleated RBC % 0.7 H Absolute Neutrophils 4.05 Absolute Lymphocytes 0.63 L Absolute Monocytes 0.87 H Absolute Eosinophils 0.01 Absolute Basophils 0.04 D-Dimer Sodium 141 Potassium 3.6 Chloride 99 Carbon Dioxide 32.1 H Anion Gap 9.9 BUN 32 H Creatinine 2.2 H Est GFR (CKD-EPI 2020) 31.24 Glucose 96 Calcium 8.9 Magnesium 1.9 Total Bilirubin 1.1 H AST 32 ALT 14 L Alkaline Phosphatase 71 Troponin I < 50 NT-Pro-B Natriuret Pep 6183 H Total Protein 7.3 Albumin 3.4 COVID-19 Source SARS-CoV-2 (PCR) Influenza Type A (PCR) Influenza Type B (PCR) RSV (PCR) 12/09/21 12/09/21 12/09/21 12:30 12:50 15:26 WBC RBC Hgb Hct MCV MCH MCHC RDW Plt Count MPV Immature Gran % Neutrophils % Lymphocytes % Monocytes % Eosinophils % Basophils % Nucleated RBC % Absolute Neutrophils Absolute Lymphocytes Absolute Monocytes Absolute Eosinophils Absolute Basophils D-Dimer 661 H Sodium Potassium Chloride Carbon Dioxide Anion Gap BUN Creatinine Est GFR (CKD-EPI 2020) Glucose Calcium Magnesium Total Bilirubin AST ALT Alkaline Phosphatase Troponin I < 50 NT-Pro-B Natriuret Pep Total Protein Albumin COVID-19 Source Nasopharynx SARS-CoV-2 (PCR) Positive A Influenza Type A (PCR) Negative Influenza Type B (PCR) Negative RSV (PCR) Negative Last Vital Signs Pulse 98 H 12/09/21 16:31 Resp 12 12/09/21 16:31 BP 111/82 12/09/21 16:31 Pulse Ox 89 L 12/09/21 16:31
[2021-12-09] MEDS: Metoprolol 5 MG/5 ML VIAL 2.5 MG IVP (17:15)
[2021-12-09 18:29] LABS: Lab Add On Test DONE
[2021-12-09 18:39] LABS: C-Reactive Protein 3.53 mg/dL (0.0-0.3)
[2021-12-09 19:02] LABS: Ferritin 82 ng/mL (26-388)
[2021-12-09 19:25] LABS: Procalcitonin 0.1 ng/mL
[2021-12-09] MEDS: Ascorbic Acid 500 MG TAB 1000 MG PO (20:25)
[2021-12-09] MEDS: Benzonatate 200 MG CAP PO (20:25)
[2021-12-09] MEDS: Apixaban 5 MG TAB PO (20:25)
[2021-12-09] MEDS: guaiFENesin 600 MG TABCR PO (20:25)
[2021-12-09] MEDS: Ipratropium/Albuterol 4 GM 120 PUFF INH IH (20:34)
[2021-12-09] MEDS: Budesonide/Formoterol 80/4.5 6.9 GM 60 PUFF INH IH (20:34)
[2021-12-10] VITALS (13 sets, daily range): BP systolic 85–110; BP diastolic 56–77; PULSE 78–112; RESP 12–26; TEMP 35–36.5; O2SAT 87–96
[2021-12-10 06:03] LABS: Lactate 1.1 mmol/L (0.6-1.4)
[2021-12-10 06:04] LABS: Abs Immature Grans 0.02 10^3/uL (0.0-0.06); Absolute Basophil Count 0.01 10^3/uL (0.0-0.2); Absolute Lymphocyte Count 0.41 10^3/uL (1.2-3.4); Absolute Monocyte Count 0.64 10^3/uL (0.1-0.8); Basophils % 0.2; HCT 38.3 % (40.0-50.0); Immature Grans % 0.5; MCHC 31.3 % (32.0-36.0); MCV 96 fL (80-95); MPV 9.8 fL (8.0-11.0); Monocytes % 15.7; Neutrophils % 73.6; Platelet Count 172 10^3/uL (130-400); RDW 16.8 % (11.8-14.1); RDW-SD 58.7 fL; WBC 4.08 10^3/uL (4.4-10.8)
[2021-12-10 06:14] LABS: Prothrombin Time 13.3 sec (9.3-11.0)
[2021-12-10 06:22] LABS: INR 1.3 (0.9-1.1)
[2021-12-10 06:48] LABS: D-Dimer 613 ng/mlFEU (<500)
[2021-12-10 06:49] LABS: ALT 10 U/L (16-63); AST 31 U/L (15-37); Albumin 2.8 g/dL (3.4-5.0); Alkaline Phosphatase 60 U/L (46-116); Anion Gap 6.5 mmol/L (3-11); BUN 35 mg/dL (7-18); Bilirubin, Total 0.7 mg/dL (0.2-1.0); CO2 31.5 mmol/L (21.0-32.0); CREATININE 1.8 mg/dL (0.70-1.30); Calcium 8.2 mg/dL (8.5-10.1); Chloride 100 mmol/L (98-107); Estimated GFR 39.75 (mL/min/1.73m2); Ferritin 86 ng/mL (26-388); Glucose 100 mg/dL (74-106); Magnesium 1.8 mg/dL (1.8-2.4); Potassium 3.5 mmol/L (3.5-5.1); Sodium 138 mmol/L (136-145)
[2021-12-10 07:13] LABS: Bilirubin, Direct 0.3 mg/dL (0.0-0.2); C-Reactive Protein 3.96 mg/dL (0.0-0.3); Creatine Kinase 250 U/L (39-308)
--- NOTE | 2021-12-10 08:00 | DI.US_ITS ---
Exam(s) US LOWER EXTREMITY VENOUS RT EXAM: US LOWER EXTREMITY VENOUS RT CLINICAL HISTORY: RLE edema, concern for DVT TECHNIQUE: Right lower extremity venous ultrasound performed using grayscale, color-flow, and spectr al Doppler analysis. COMPARISON: No exams were available for comparison FINDINGS: The right common femoral, femoral and popliteal veins demonstrate normal compressibility, augmentatio n, and color Doppler. The posterior tibial veins are patent. The saphenofemoral junction is unremark able. There is no evidence of a Lambert cyst. The soft tissues are unremarkable. IMPRESSION: No evidence of a right lower extremity DVT. DATA REPOSITORY:
[2021-12-10] MEDS: Potassium Chloride 20 MEQ TABCR PO (08:26)
[2021-12-10] MEDS: Cetirizine 10 MG TAB PO (08:26)
[2021-12-10] MEDS: Metoprolol CR 100 MG TABCR 200 MG PO (08:26)
[2021-12-10] MEDS: Bumetanide 1 MG TAB PO (08:26)
[2021-12-10] MEDS: guaiFENesin 600 MG TABCR PO ×2 (08:26→21:00)
[2021-12-10] MEDS: Apixaban 5 MG TAB PO ×2 (08:26→21:00)
[2021-12-10] MEDS: Cholecalciferol (Vitamin D3) 1,000 UNIT TAB 2000 UNITS PO (08:26)
[2021-12-10] MEDS: Ascorbic Acid 500 MG TAB 1000 MG PO ×2 (08:27→21:00)
[2021-12-10] MEDS: Benzonatate 200 MG CAP PO ×3 (08:27→21:00)
[2021-12-10] MEDS: Zinc Sulfate 220 MG TAB PO (08:27)
[2021-12-10] MEDS: Budesonide/Formoterol 80/4.5 6.9 GM 60 PUFF INH IH ×2 (09:05→21:03)
[2021-12-10] MEDS: Ipratropium/Albuterol 4 GM 120 PUFF INH IH ×4 (09:06→21:02)
[2021-12-10] MEDS: Lactated Ringers 250 ML IV (10:39)
--- NOTE | 2021-12-10 10:50 | INITIAL_ITS ---
- If Service Date Differs Date of service: 12/10/21 Time of Service: 10:50 Care Management Initial Assess REASON FOR HOSPITALIZATION:: Alcohol Intoxication, Gallstone Pancreatitis PAST MEDICAL HISTORY/PAST SURGICAL HISTORY:: Atrial fibrillation (Chronic). R espiratory failure (Acute). Dilated cardiomyopathy (Chronic). Pulmonary hypertension (Chronic). Paroxysmal atrial fibrillation (Chronic 06/06/14). Essential hypertension (Chronic 06/17/16). Atrial fibrillation (Chronic 10/12/12). In 07/29/12 for atrial fib. Now in, 10-12-[address] Samir Rodriguez. Chronic obstructive lung disease (Chronic) PREVIOUS FUNCTIONAL STATUS/SOCIAL/FAMILY SUPPORTS:: Resides with , Bel in [place], [place]. Supportive family and friends including adult children; son and daughter. Bel reports their bedroom is on the second floor and bathroom on the first floor and Mina continues to utilize the stairs. He is on baseline O2 at 3L and has his own concentrator and tanks through [facility]. CURRENT FUNCTIONAL STATUS:: Remains on COVID Precautions; family in waiting room. Reviewed information; Bel provided review and stated she would make sure o ADVANCE DIRECTIVES:: None on file. Has patient been provided with info about the portal/API?: Yes Did the patient sign up for the portal?: No CODE STATUS:: DNR/DNI INSURANCE COVERAGE / FINANCIAL ISSUES:: [employer] CURRENT HOME/COMMUNITY SERVICES/EQUIPMENT:: Home O2 through [employer]: 3L at baseline PRIMARY CARE PHYSICIAN:: Anthony Ashton POTENTIAL DISCHARGE NEEDS:: Follow up appointments, Palliative consult. PATIENT/FAMILY EDUCATION NEEDS:: Review discharge instructions, discuss Ask Me Three. ANTICIPATED BARRIERS TO DISCHARGE:: None identified at this time. TRANSPORTATION:: Via private vehicle with family. PLAN:: Mina will return home when ready per MD. He will follow up with his PCP and plan of care as prescribed. He will transport via private vehicle with his , who has agreed to bring his oxygen tank/concentrator to the hospital upon discharge.
[2021-12-10] MEDS: Normal Saline Flush 10 ML SYR IVP (12:39)
[2021-12-10] MEDS: Dexamethasone 4 MG/ML VIAL 6 MG IVP (12:40)
[2021-12-10] MEDS: REMDESIVIR 100 MG in Normal Saline 250 ML 250 MG IVPB (14:06)
--- NOTE | 2021-12-10 14:18 | PGE_ITS ---
Date of Service Date of service: 12/10/21 Time of Service: 10:30 Assessment and Plan Assessment and plan (1) Acute on chronic respiratory failure with hypoxia: Status: Acute Assessment and plan: Due to COVID-19 causing acute exacerbation of COPD. No evidence of bacterial PNA. Treat with remdesivir, dexamethasone, baricitinib. Hypotension today could be due to remdesivir - will monitor BPs closely. Trend CRP. Encourage IS/acapella. Supplement vitamin C, D, zinc. Melatonin. DNR/DNI. Already on anticoagulation with eliquis. (2) COVID-19: Status: Acute Assessment and plan: As above (3) Acute exacerbation of chronic obstructive pulmonary disease: Status: Acute Assessment and plan: As above (4) Chronic atrial fibrillation with rapid ventricular response: Status: Acute Assessment and plan: Continue home metoprolol. prn IV lopressor written. (5) Pneumonia: Status: Acute Assessment and plan: Due to COVID-19. Bacterial component ruled out with a negative procalcitonin - no role for abx. As above (6) Pulmonary hypertension: Status: Chronic Assessment and plan: Provide CPAP at night. Monitor volume status. (7) Dilated cardiomyopathy: Status: Chronic Assessment and plan: Holding bumex today and bolused 250 cc LR due to borderline hypotension. Will reassess in am. (8) Discharge planning issues: Status: Acute Assessment and plan: DNR/DNI Palliative care consulted. Subjective Subjective Interval history since last seen: Mr Martins got dizzy this morning after washing up and ambulating in the room. This happened after his heart rate became controlled, but he did in fact have rapid rates this morning as well. Denies dizziness at the time of my visit, chest pain, breathing felt better. No nausea. Energy level is better. Orthostatic. On 5L of O2; did not like humidified heated high flow NC and did not use it overnight. Did not use the CPAP. Exam Narrative Exam Narrative: General: Pleasant talkative Elderly male, A&Ox3, NAD, on 5L of O2 by [place] HEENT: EOMI, MMM Cardiovascular: irregularly irregular rhythm, no m/r/g Lungs: CTAB/diminished breath sounds B Gastrointestinal: soft, nontender, nondistended Extremities: 2+ RLE edema, 1+ LLE edema, no c/c, pedal pulses difficult to p alpate. Objective Last Vital Signs Temp 36.3 C L 12/10/21 12:05 Pulse 101 H 12/10/21 12:05 Resp 18 12/10/21 12:05 BP 94/63 L 12/10/21 12:05 Pulse Ox 95 12/10/21 12:05 Laboratory Results - last 24 hr 12/09/21 12/09/21 12/09/21 15:26 15:26 15:26 WBC RBC Hgb Hct MCV MCH MCHC RDW Plt Count MPV Immature Gran % Neutrophils % Lymphocytes % Monocytes % Eosinophils % Basophils % Nucleated RBC % Absolute Neutrophils Absolute Lymphocytes Absolute Monocytes Absolute Eosinophils Absolute Basophils PT INR D-Dimer VBG Lactate Sodium Potassium Chloride Carbon Dioxide Anion Gap BUN Creatinine Est GFR (CKD-EPI 2020) Glucose Calcium Magnesium Ferritin 82 Total Bilirubin Conjugated Bilirubin AST ALT Alkaline Phosphatase Creatine Kinase Troponin I < 50 C-Reactive Protein 3.53 H Total Protein Albumin 25-OH Vitamin D Total Procalcitonin Add-On Test Request DONE 12/09/21 12/10/21 12/10/21 15:26 05:48 05:48 WBC RBC Hgb Hct MCV MCH MCHC RDW Plt Count MPV Immature Gran % Neutrophils % Lymphocytes % Monocytes % Eosinophils % Basophils % Nucleated RBC % Absolute Neutrophils Absolute Lymphocytes Absolute Monocytes Absolute Eosinophils Absolute Basophils PT INR D-Dimer VBG Lactate Sodium 138 Potassium 3.5 Chloride 100 Carbon Dioxide 31.5 Anion Gap 6.5 BUN 35 H Creatinine 1.8 H Est GFR (CKD-EPI 2020) 39.75 Glucose 100 Calcium 8.2 L Magnesium 1.8 Ferritin 86 Total Bilirubin 0.7 Conjugated Bilirubin 0.3 H AST 31 ALT 10 L Alkaline Phosphatase 60 Creatine Kinase 250 Troponin I C-Reactive Protein 3.96 H Total Protein 6.0 L Albumin 2.8 L 25-OH Vitamin D Total 33.0 Procalcitonin 0.1 Add-On Test Request 12/10/21 12/10/21 12/10/21 05:48 05:48 05:48 WBC 4.08 L RBC 4.00 L Hgb 12.0 L Hct 38.3 L MCV 96 H MCH 30.0 MCHC 31.3 L RDW 16.8 H Plt Count 172 MPV 9.8 Immature Gran % 0.5 Neutrophils % 73.6 Lymphocytes % 10.0 Monocytes % 15.7 Eosinophils % 0.0 Basophils % 0.2 Nucleated RBC % 0.0 Absolute Neutrophils 3.00 Absolute Lymphocytes 0.41 L Absolute Monocytes 0.64 Absolute Eosinophils 0.00 Absolute Basophils 0.01 PT 13.3 H INR 1.3 H D-Dimer 613 H VBG Lactate 1.1 Sodium Potassium Chloride Carbon Dioxide Anion Gap BUN Creatinine Est GFR (CKD-EPI 2020) Glucose Calcium Magnesium Ferritin Total Bilirubin Conjugated Bilirubin AST ALT Alkaline Phosphatase Creatine Kinase Troponin I C-Reactive Protein Total Protein Albumin 25-OH Vitamin D Total Procalcitonin Add-On Test Request Objective Narrative Objective Narrative: US RLE: No evidence of a right lower extremity DVT.?
[2021-12-10] MEDS: Melatonin 3 MG TAB PO (21:14)
[2021-12-11] VITALS (14 sets, daily range): BP systolic 93–109; BP diastolic 65–78; PULSE 70–105; RESP 18–20; TEMP 35.2–36.1; O2SAT 89–99
[2021-12-11 07:00] LABS: Abs Immature Grans 0.02 10^3/uL (0.0-0.06); Absolute Monocyte Count 0.45 10^3/uL (0.1-0.8); Absolute Neutrophil Count 3.67 10^3/uL (1.2-6.7); HCT 38.2 % (40.0-50.0); Immature Grans % 0.4; Lymphocytes % 10.8; MCH 30.2 pg (27.0-33.0); MCHC 31.4 % (32.0-36.0); MCV 96 fL (80-95); MPV 10.7 fL (8.0-11.0); Monocytes % 9.7; Neutrophils % 79.1; Platelet Count 175 10^3/uL (130-400); RBC 3.98 10^6/uL (4.36-5.78); RDW 16.9 % (11.8-14.1); RDW-SD 59.3 fL; WBC 4.64 10^3/uL (4.4-10.8)
[2021-12-11 07:08] LABS: INR 1.4 (0.9-1.1); Prothrombin Time 13.8 sec (9.3-11.0)
[2021-12-11 07:19] LABS: ALT 12 U/L (16-63); AST 31 U/L (15-37); Albumin 2.6 g/dL (3.4-5.0); Alkaline Phosphatase 56 U/L (46-116); Anion Gap 3.6 mmol/L (3-11); BUN 47 mg/dL (7-18); Bilirubin, Direct 0.2 mg/dL (0.0-0.2); Bilirubin, Total 0.6 mg/dL (0.2-1.0); C-Reactive Protein 2.75 mg/dL (0.0-0.3); CO2 33.4 mmol/L (21.0-32.0); CREATININE 1.7 mg/dL (0.70-1.30); Calcium 8.4 mg/dL (8.5-10.1); Chloride 102 mmol/L (98-107); Estimated GFR 42.57 (mL/min/1.73m2); Glucose 99 mg/dL (74-106); Magnesium 1.9 mg/dL (1.8-2.4); Potassium 4.3 mmol/L (3.5-5.1); Sodium 139 mmol/L (136-145); Total Protein 5.7 g/dL (6.4-8.2)
[2021-12-11 07:33] LABS: D-Dimer 533 ng/mlFEU (<500)
[2021-12-11] MEDS: Cholecalciferol (Vitamin D3) 1,000 UNIT TAB 2000 UNITS PO (08:32)
[2021-12-11] MEDS: guaiFENesin 600 MG TABCR PO ×2 (08:32→21:52)
[2021-12-11] MEDS: Potassium Chloride 20 MEQ TABCR PO (08:33)
[2021-12-11] MEDS: Zinc Sulfate 220 MG TAB PO (08:33)
[2021-12-11] MEDS: Ascorbic Acid 500 MG TAB 1000 MG PO ×2 (08:33→21:51)
[2021-12-11] MEDS: Benzonatate 200 MG CAP PO ×3 (08:33→21:51)
[2021-12-11] MEDS: Metoprolol CR 100 MG TABCR 200 MG PO (08:33)
[2021-12-11] MEDS: Apixaban 5 MG TAB PO ×2 (08:33→21:51)
[2021-12-11] MEDS: Cetirizine 10 MG TAB PO (08:33)
[2021-12-11] MEDS: Budesonide/Formoterol 80/4.5 6.9 GM 60 PUFF INH IH ×2 (10:18→21:59)
[2021-12-11] MEDS: Ipratropium/Albuterol 4 GM 120 PUFF INH IH ×4 (10:18→21:52)
[2021-12-11] MEDS: Dexamethasone 4 MG/ML VIAL 6 MG IVP (12:22)
--- NOTE | 2021-12-11 15:45 | W.PM.PROGNOT ---
Date of Service Date of service: 12/11/21 Time of Service: 15:45 Assessment and Plan Assessment and plan (1) Acute on chronic respiratory failure with hypoxia: Status: Acute Assessment and plan: Due to COVID-19 causing acute exacerbation of COPD. No evidence of bacterial PNA. Improving. Continue remdesivir, dexamethasone, baricitinib. Hypotension not related to remdesivir, per daughter's report, who states the patient gets symptomatic episodes at home. Trend CRP. Encourage IS/acapella. Supplement vitamin C, D, zinc. Melatonin. DNR/DNI. Already on anticoagulation with eliquis. (2) COVID-19: Status: Acute Assessment and plan: As above (3) Acute exacerbation of chronic obstructive pulmonary disease: Status: Acute Assessment and plan: As above (4) Chronic atrial fibrillation with rapid ventricular response: Status: Acute Assessment and plan: Continue home metoprolol. prn IV lopressor written. (5) Pneumonia: Status: Acute Assessment and plan: Due to COVID-19. Bacterial component ruled out with a negative procalcitonin - no role for abx. As above (6) Pulmonary hypertension: Status: Chronic Assessment and plan: Provide CPAP at night. Monitor volume status. (7) Dilated cardiomyopathy: Status: Chronic Assessment and plan: Holding bumex today. Will reassess in am. (8) Discharge planning issues: Status: Acute Assessment and plan: DNR/DNI Palliative care consulted. Continues to require hospitalizaton. Discussed with daughter. Subjective Subjective Interval history since last seen: Mr Martins feels better. He did not get dizzy today. His daughter informs me that he has episodes of hypotension at home as well, not related to being remdesivir. He denies chest pain, states his cough has almost resolved and is now nonproductive. Shortness of breath is better. Denies n/v/diarrhea. Has been working with IS/acapella. Titrated down to 4L of O2 by [place] (normally on 3L). Exam Narrative Exam Narrative: General: Pleasant talkative Elderly male, sitting up in bed, A&Ox3, NAD, on 4L of O2 by [place] HEENT: EOMI, MMM Cardiovascular: irregularly irregular rhythm, no m/r/g Lungs: CTAB/diminished breath sounds B Gastrointestinal: soft, nontender, nondistended Extremities: 2+ RLE edema, 1+ LLE edema, no c/c, pedal pulses difficult to palpate. Objective Last Vital Signs Temp 35.9 C L 12/11/21 14:47 Pulse 79 12/11/21 14:47 Resp 18 12/11/21 14:47 BP 96/65 L 12/11/21 14:47 Pulse Ox 90 L 12/11/21 14:47 Laboratory Results - last 24 hr 12/11/21 12/11/21 12/11/21 05:47 05:47 05:47 WBC 4.64 RBC 3.98 L Hgb 12.0 L Hct 38.2 L MCV 96 H MCH 30.2 MCHC 31.4 L RDW 16.9 H Plt Count 175 MPV 10.7 Immature Gran % 0.4 Neutrophils % 79.1 Lymphocytes % 10.8 Monocytes % 9.7 Eosinophils % 0.0 Basophils % 0.0 Nucleated RBC % 0.0 Absolute Neutrophils 3.67 Absolute Lymphocytes 0.50 L Absolute Monocytes 0.45 Absolute Eosinophils 0.00 Absolute Basophils 0.00 PT 13.8 H INR 1.4 H D-Dimer 533 H Sodium 139 Potassium 4.3 Chloride 102 Carbon Dioxide 33.4 H Anion Gap 3.6 BUN 47 H Creatinine 1.7 H Est GFR (CKD-EPI 2020) 42.57 Glucose 99 Calcium 8.4 L Magnesium 1.9 Total Bilirubin 0.6 Conjugated Bilirubin 0.2 AST 31 ALT 12 L Alkaline Phosphatase 56 C-Reactive Protein 2.75 H Total Protein 5.7 L Albumin 2.6 L
[2021-12-11] MEDS: REMDESIVIR 100 MG in Normal Saline 250 ML 250 MG IVPB (16:24)
[2021-12-11] MEDS: Melatonin 3 MG TAB PO (21:51)
[2021-12-11] MEDS: Normal Saline Flush 10 ML SYR IVP (21:52)
[2021-12-12] VITALS (10 sets, daily range): BP systolic 107–121; BP diastolic 72–83; PULSE 88–111; RESP 14–20; TEMP 35.5–36.4; O2SAT 88–95
[2021-12-12 06:02] LABS: Abs Immature Grans 0.04 10^3/uL (0.0-0.06); Absolute Lymphocyte Count 0.45 10^3/uL (1.2-3.4); Absolute Monocyte Count 0.52 10^3/uL (0.1-0.8); Absolute Neutrophil Count 5.87 10^3/uL (1.2-6.7); HCT 37.9 % (40.0-50.0); HGB 11.7 g/dL (13.5-17.5); Immature Grans % 0.6; Lymphocytes % 6.5; MCH 29.8 pg (27.0-33.0); MCHC 30.9 % (32.0-36.0); MCV 96 fL (80-95); MPV 10.3 fL (8.0-11.0); Monocytes % 7.6; Neutrophils % 85.3; Platelet Count 195 10^3/uL (130-400); RBC 3.93 10^6/uL (4.36-5.78); RDW 16.7 % (11.8-14.1); RDW-SD 59.6 fL; WBC 6.88 10^3/uL (4.4-10.8)
[2021-12-12 06:21] LABS: INR 1.3 (0.9-1.1); Prothrombin Time 13.2 sec (9.3-11.0)
[2021-12-12 06:33] LABS: ALT 9 U/L (16-63); AST 33 U/L (15-37); Albumin 2.7 g/dL (3.4-5.0); Alkaline Phosphatase 61 U/L (46-116); Anion Gap 4.4 mmol/L (3-11); BUN 47 mg/dL (7-18); Bilirubin, Direct 0.2 mg/dL (0.0-0.2); Bilirubin, Total 0.5 mg/dL (0.2-1.0); C-Reactive Protein 1.93 mg/dL (0.0-0.3); CO2 31.6 mmol/L (21.0-32.0); CREATININE 1.4 mg/dL (0.70-1.30); Calcium 8.1 mg/dL (8.5-10.1); Chloride 101 mmol/L (98-107); Estimated GFR 53.74 (mL/min/1.73m2); Glucose 103 mg/dL (74-106); Magnesium 2.1 mg/dL (1.8-2.4); Potassium 4.1 mmol/L (3.5-5.1); Sodium 137 mmol/L (136-145); Total Protein 5.8 g/dL (6.4-8.2)
[2021-12-12 06:38] LABS: D-Dimer 483 ng/mlFEU (<500)
[2021-12-12 07:02] LABS: Ferritin 77 ng/mL (26-388)
[2021-12-12 07:07] LABS: Procalcitonin < 0.1 ng/mL
[2021-12-12] MEDS: Ascorbic Acid 500 MG TAB 1000 MG PO ×2 (08:03→20:50)
[2021-12-12] MEDS: Benzonatate 200 MG CAP PO ×3 (08:03→20:50)
[2021-12-12] MEDS: Cetirizine 10 MG TAB PO (08:03)
[2021-12-12] MEDS: Metoprolol CR 100 MG TABCR 200 MG PO (08:03)
[2021-12-12] MEDS: Apixaban 5 MG TAB PO ×2 (08:03→20:50)
[2021-12-12] MEDS: Potassium Chloride 20 MEQ TABCR PO (08:03)
[2021-12-12] MEDS: Normal Saline Flush 10 ML SYR IVP ×2 (08:04→20:57)
[2021-12-12] MEDS: Zinc Sulfate 220 MG TAB PO (08:04)
[2021-12-12] MEDS: Cholecalciferol (Vitamin D3) 1,000 UNIT TAB 2000 UNITS PO (08:04)
[2021-12-12] MEDS: guaiFENesin 600 MG TABCR PO ×2 (08:04→20:50)
[2021-12-12] MEDS: Ipratropium/Albuterol 4 GM 120 PUFF INH IH ×4 (08:33→20:51)
[2021-12-12] MEDS: Budesonide/Formoterol 80/4.5 6.9 GM 60 PUFF INH IH ×2 (08:34→20:50)
[2021-12-12] MEDS: Dexamethasone 4 MG/ML VIAL 6 MG IVP (12:34)
[2021-12-12] MEDS: REMDESIVIR 100 MG in Normal Saline 250 ML 250 MG IVPB (14:27)
[2021-12-12] MEDS: Normal Saline 500 ML 30 ML IV (14:27)
--- NOTE | 2021-12-12 20:04 | W.PM.PROGNOT ---
Date of Service Date of service: 12/12/21 Time of Service: 20:06 Assessment and Plan Assessment and plan (1) Acute on chronic respiratory failure with hypoxia: Status: Acute Assessment and plan: Due to COVID-19 causing acute exacerbation of COPD. No evidence of bacterial PNA. Improving - near baseline. Continue remdesivir, dexamethasone, baricitinib. Hypotension not related to remdesivir, per daughter's report, who states the patient gets symptomatic episodes at home. Trend CRP. Encourage IS/acapella. Supplement vitamin C, D, zinc. Melatonin. DNR/DNI. Already on anticoagulation with eliquis. (2) COVID-19: Status: Acute Assessment and plan: As above (3) Acute exacerbation of chronic obstructive pulmonary disease: Status: Acute Assessment and plan: As above (4) Chronic atrial fibrillation with rapid ventricular response: Status: Acute Assessment and plan: Continue home metoprolol. prn IV lopressor written. (5) Pneumonia: Status: Acute Assessment and plan: Due to COVID-19. Bacterial component ruled out with a negative procalcitonin - no role for abx. As above (6) Pulmonary hypertension: Status: Chronic Assessment and plan: Resume bumex. Monitor volume status. (7) Dilated cardiomyopathy: Status: Chronic Assessment and plan: Resume bumex. (8) Discharge planning issues: Status: Acute Assessment and plan: DNR/DNI Palliative care consulted. Anticipate discharge home tomorrow. Discussed with . Subjective Subjective Interval history since last seen: Mr Martins feels better today. Almost back to normal. He required 4L of O2 when ambulating but is doing well on 3L of O2 at rest. Denies dizziness, chest pain, shortness of breath, nausea. Exam Narrative Exam Narrative: Physical exam was abbreivated today due to a patient emergency. General: Pleasant talkative Elderly male, sitting up in bed, A&Ox3, NAD, on 3L of O2 by [place] HEENT: EOMI, MMM Cardiovascular: not auscultated Lungs: nonlabored breathing Gastrointestinal: soft, nontender, nondistended Extremities: 2+ RLE edema, 1+ LLE edema, no c/c, pedal pulses difficult to palpate. Objective Last Vital Signs Temp 36.1 C L 12/12/21 15:56 Pulse 90 12/12/21 15:56 Resp 14 12/12/21 15:56 BP 107/77 12/12/21 15:56 Pulse Ox 92 12/12/21 15:56 Laboratory Results - last 24 hr 12/12/21 12/12/21 12/12/21 05:30 05:30 05:30 WBC 6.88 RBC 3.93 L Hgb 11.7 L Hct 37.9 L MCV 96 H MCH 29.8 MCHC 30.9 L RDW 16.7 H Plt Count 195 MPV 10.3 Immature Gran % 0.6 Neutrophils % 85.3 Lymphocytes % 6.5 Monocytes % 7.6 Eosinophils % 0.0 Basophils % 0.0 Nucleated RBC % 0.0 Absolute Neutrophils 5.87 Absolute Lymphocytes 0.45 L Absolute Monocytes 0.52 Absolute Eosinophils 0.00 Absolute Basophils 0.00 PT INR D-Dimer Sodium 137 Potassium 4.1 Chloride 101 Carbon Dioxide 31.6 Anion Gap 4.4 BUN 47 H Creatinine 1.4 H Est GFR (CKD-EPI 2020) 53.74 Glucose 103 Calcium 8.1 L Magnesium 2.1 Ferritin 77 Total Bilirubin 0.5 Conjugated Bilirubin 0.2 AST 33 ALT 9 L Alkaline Phosphatase 61 C-Reactive Protein 1.93 H Total Protein 5.8 L Albumin 2.7 L Procalcitonin < 0.1 12/12/21 05:30 WBC RBC Hgb Hct MCV MCH MCHC RDW Plt Count MPV Immature Gran % Neutrophils % Lymphocytes % Monocytes % Eosinophils % Basophils % Nucleated RBC % Absolute Neutrophils Absolute Lymphocytes Absolute Monocytes Absolute Eosinophils Absolute Basophils PT 13.2 H INR 1.3 H D-Dimer 483 Sodium Potassium Chloride Carbon Dioxide Anion Gap BUN Creatinine Est GFR (CKD-EPI 2020) Glucose Calcium Magnesium Ferritin Total Bilirubin Conjugated Bilirubin AST ALT Alkaline Phosphatase C-Reactive Protein Total Protein Albumin Procalcitonin
[2021-12-12] MEDS: Melatonin 3 MG TAB PO (21:02)
[2021-12-13] VITALS (7 sets, daily range): BP systolic 106–128; BP diastolic 61–88; PULSE 80–112; RESP 14–19; TEMP 35.2–36.8; O2SAT 90–95
[2021-12-13 07:05] LABS: Abs Immature Grans 0.05 10^3/uL (0.0-0.06); Absolute Basophil Count 0.01 10^3/uL (0.0-0.2); Absolute Lymphocyte Count 0.46 10^3/uL (1.2-3.4); Absolute Monocyte Count 0.86 10^3/uL (0.1-0.8); Absolute Neutrophil Count 7.64 10^3/uL (1.2-6.7); Basophils % 0.1; HCT 40.5 % (40.0-50.0); HGB 12.5 g/dL (13.5-17.5); Immature Grans % 0.6; Lymphocytes % 5.1; MCH 29.6 pg (27.0-33.0); MCHC 30.9 % (32.0-36.0); MCV 96 fL (80-95); MPV 10.2 fL (8.0-11.0); Monocytes % 9.5; Neutrophils % 84.7; Platelet Count 181 10^3/uL (130-400); RBC 4.23 10^6/uL (4.36-5.78); RDW 16.7 % (11.8-14.1); WBC 9.02 10^3/uL (4.4-10.8)
[2021-12-13 07:16] LABS: INR 1.3 (0.9-1.1); Prothrombin Time 12.7 sec (9.3-11.0)
[2021-12-13 07:38] LABS: ALT 14 U/L (16-63); AST 28 U/L (15-37); Albumin 2.8 g/dL (3.4-5.0); Alkaline Phosphatase 59 U/L (46-116); Anion Gap 4.8 mmol/L (3-11); BUN 42 mg/dL (7-18); Bilirubin, Direct 0.2 mg/dL (0.0-0.2); Bilirubin, Total 0.6 mg/dL (0.2-1.0); C-Reactive Protein 1.48 mg/dL (0.0-0.3); CO2 29.2 mmol/L (21.0-32.0); CREATININE 1.3 mg/dL (0.70-1.30); Calcium 8.4 mg/dL (8.5-10.1); Chloride 105 mmol/L (98-107); Estimated GFR 58.73 (mL/min/1.73m2); Glucose 104 mg/dL (74-106); Potassium 4.6 mmol/L (3.5-5.1); Sodium 139 mmol/L (136-145)
[2021-12-13 07:47] LABS: D-Dimer 417 ng/mlFEU (<500)
[2021-12-13] MEDS: Metoprolol CR 100 MG TABCR 200 MG PO (08:35)
[2021-12-13] MEDS: Potassium Chloride 20 MEQ TABCR PO (08:36)
[2021-12-13] MEDS: Benzonatate 200 MG CAP PO ×2 (08:37→14:47)
[2021-12-13] MEDS: guaiFENesin 600 MG TABCR PO (08:37)
[2021-12-13] MEDS: Ascorbic Acid 500 MG TAB 1000 MG PO (08:37)
[2021-12-13] MEDS: Zinc Sulfate 220 MG TAB PO (08:37)
[2021-12-13] MEDS: Cetirizine 10 MG TAB PO (08:37)
[2021-12-13] MEDS: Normal Saline Flush 10 ML SYR IVP ×2 (08:37→14:47)
[2021-12-13] MEDS: Bumetanide 1 MG TAB PO (08:37)
[2021-12-13] MEDS: Apixaban 5 MG TAB PO (08:37)
[2021-12-13] MEDS: Cholecalciferol (Vitamin D3) 1,000 UNIT TAB 2000 UNITS PO (08:37)
[2021-12-13] MEDS: Ipratropium/Albuterol 4 GM 120 PUFF INH IH ×2 (09:33→12:19)
[2021-12-13] MEDS: Budesonide/Formoterol 80/4.5 6.9 GM 60 PUFF INH IH (09:34)
--- NOTE | 2021-12-13 11:28 | PDOC.CMDIS ---
- If Service Date Differs Date of service: 12/13/21 Time of Service: 11:28 LACE Index Scoring Tool - Questions: Length of Stay (in days): 4 - 6 Acuity (Admit via E.D.?): Yes Comorbidities: Chronic Pulmonary Disease E.D. Visits: 1 - Answers: Total Score: 10 Risk of Readmission: High Risk Care Management Discharge Reason for Hospitalization: Alcohol Intoxication, Gallstone Pancreatitis Discharge Plan: Mina will return home when ready per MD. He will follow up with his PCP and plan of care as prescribed. He will transport via private vehicle with his , who has agreed to bring his oxygen tank/concentrator to the hospital upon discharge. Patient/Family Education Needs: Review discharge instructions, discuss Ask Me Three. Services Needed at Discharge: DME Agency (Resume home O2)
[2021-12-13] MEDS: Dexamethasone 4 MG/ML VIAL 6 MG IVP (13:04)
--- NOTE | 2021-12-13 13:31 | RESPIRATORY ---
RT walked with patient to measure O2 status. Pt was able to maintain SpO2 89% or better on his baseline of 3L.
[2021-12-13] MEDS: REMDESIVIR 100 MG in Normal Saline 250 ML 250 MG IVPB (14:47)
--- NOTE | 2021-12-13 14:59 | W.PM.DS.N ---
Date of service: 12/13/21 Time of Service: 14:59 DS: Diagnosis Discharge Diagnosis (1) Acute on chronic respiratory failure with hypoxia: Status: Resolved (2) COVID-19: Status: Acute (3) Acute exacerbation of chronic obstructive pulmonary disease: Status: Acute (4) Chronic atrial fibrillation with rapid ventricular response: Status: Acute (5) Pneumonia: Status: Acute (6) Pulmonary hypertension: Status: Chronic (7) Dilated cardiomyopathy: Status: Chronic Discharge Plan Disposition Patient Disposition: HOME Condition: Improving Discharge Details Reason For Visit: COVID-19 W/Pneumonia,Acute on Chronic Hypoxic Resp Admit Date/Time: 12/09/21 16:51 Admit Provider: Letty Clark Attending Provider: Letty Clark Primary Care Provider: Anthony Ashton Hospital Course Hospital Course: Mr Martins is a 71 year old male with PMHx of chronic hypoxic respiratory failure due to COPD, on 3L of O2 by [place], as well as pulmonary fibrosis, pulmonary hypertension, Afib, who was a patient on [facility] hospitalist service from 12/09/21 to 12/13/21 for acute on chronic hypoxic respiratory failure due to COVID-19. He required up to 5L of O2 by [place], refusing CPAP and humidified heated high flow system. He was treated with remdesivir, dexamethasone, and baricitinib, as well as bronchodilators, antitussives/mucolytics, IS and acapella. With these treatment modalities he improved. We did have to hold his diuretics for a couple of days due to hypotension which was symptomatic on day 2 of hospitalization. We were able to resume bumex prior to discharge without recurrence of symptoms. The patient is now down to his 3L of O2 by AL with the same oxygen requirement while ambulating. He is medically stable for discharge. Care for patient as well as completion of his discharge summary took 45 minutes on day of discharge. Home Meds and New Rx's Prescriptions: New benzonatate 200 mg Capsule 200 mg PO TID PRN PRN (Reason: cough) Qty: 30 0RF ascorbic acid (vitamin C) [Vitamin C] 500 mg Tablet 1,000 mg PO BID Qty: 20 0RF zinc sulfate [Zinc-220] 50 mg zinc (220 mg) Capsule 220 mg PO DAILY Qty: 5 0RF cholecalciferol (vitamin D3) 25 mcg (1,000 unit) Tablet 2,000 units PO DAILY Qty: 10 0RF guaifenesin [Mucus Relief ER] 600 mg Tablet Extended Release 12hr 600 mg PO BID PRN PRNQty: 30 0RF prednisone 20 mg tablet See Rx Instructions .ROUTE .COMPLEX Qty: 7 0RF Rx Instructions: 40 mg PO daily x 2 days, then 20 mg PO daily x 2 days, then 10 mg PO daily x 2 days, then stop. Continued Eliquis 5 mg tablet 5 mg PO BID Qty: 60 3RF bumetanide 2 mg tablet 1 mg PO DAILY Qty: 90 2RF Rx Instructions: dose reduction 08/24/21 cetirizine [Zyrtec] 10 mg tablet 10 mg PO DAILY Qty: 90 2RF ipratropium bromide 21 mcg (0.03 %) spray,non-aerosol 2 spray intranasal BID Qty: 30 3RF Rx Instructions: administer into each nostril levalbuterol tartrate [Xopenex HFA] 45 mcg/actuation HFA aerosol inhaler 2 inh inhalation Q6H PRN (Reason: shortness of breath) Qty: 15 9RF metoprolol succinate 100 mg tablet extended release 24 hr 200 mg PO DAILY Qty: 180 3RF omeprazole magnesium [Prilosec OTC] 20 mg tablet,delayed release (DR/EC) 20 mg PO DAILY PRN (Reason: dyspepsia) Qty: 90 2RF potassium chloride [Klor-Con M20] 20 mEq tablet,ER particles/crystals 20 meq PO DAILY Qty: 30 2RF Trelegy Ellipta 100-62.5-25 mcg blister with device 62.5 ea INHALATION PRN PRN Discharge Instructions Instructions: Prednisone (By mouth), COPD (Chronic Obstructive Pulmonary Disease) (DC), COVID-19 (Coronavirus Disease 2019) (DC) Additional Instructions: Finish your prednisone taper as prescribed. Return to the hospital with any fever, bleeding, chest pain, or worsening shortness of breath. Follow up with your PCP in 1-2 weeks. You should self isolate until the 10th day from your original symptom onset. You can take a rapid COVID-19 test at home to know if it is safe to come out of isolation. Referrals: Ade Cortes MD [ [facility] STAFF PHYSICIAN] - Anthony Ashton MD [Primary Care Provider] - Activity:: Activity as Tolerated Equipment/Supplies:: No Equipment Needed Diet:: As Tolerated Discharge Orders Discharge Orders: Discharge Order (Routine); Ordered 12/13/21 Ordered By: Letty Clark DS: Summary Time Spent with Patient providing and/or coordinating discharge services: Greater than 30 minutes Status at Discharge Functional status at discharge: independent ambulation Overall status at discharge: patient is back to baseline Mental Status: mental status grossly normal Speech and Movement: speech and movement normal Mood: congruent mood Affect: normal affect Exam Narrative Exam Narrative: Today's visit was done via phone. The patient was A&Ox3, did not sound tachypneic/dyspneic. Psych Mental Status: mental status grossly normal Speech and Movement: speech and movement normal Mood: congruent mood Affect: normal affect DS: Data Vitals/I&O Vitals and I&O: Vital Signs Temperature 36.8 C 12/13/21 14:56 Temperature Source Tympanic 12/13/21 14:56 Pulse 101 H 12/13/21 14:56 Pulse Rhythm Regular 12/13/21 08:30 Pulse 114 H 12/09/21 16:31 Respiratory Rate 14 12/13/21 14:56 Respiratory Effort Non-Labored 12/13/21 08:30 Respiratory Depth Normal 12/13/21 08:30 Respiratory Pattern Normal 12/13/21 08:30 Blood Pressure 106/70 12/13/21 14:56 Blood Pressure Mean 88 12/09/21 16:31 Blood Pressure Position Sitting 12/09/21 11:37 Pulse Oximetry 93 12/13/21 14:56 Oxygen Delivery Method Nasal Cannula 12/13/21 14:56 Oxygen Flow Rate 3 12/13/21 14:56 Fraction of Inspired Oxygen (FIO2) 40 12/10/21 09:12 Pain Level 0 12/13/21 14:56 Comment 12/13/21 03:21 Intake & Output 12/12/21 12/13/21 12/13/21 23:59 11:59 23:59 Intake Total 612 / 1102 Output Total 400 / 850 1550 / 3200 1650 / 3200 Balance 212 / 252 -1540 / -3190 -1650 / -3190 Weight 73.5 kg Intake: IV 312 / 322 10 / 10 Oral 300 / 780 Output: Urine 400 / 850 1550 / 3200 1650 / 3200 Other: Urine Color Yellow Yellow Yellow Urine Appearance Clear Clear Clear Urine Odor Normal Comment Voiding in the hat, in the toilet without incident. multiple voids Voiding Methods Toilet Urinal Toilet Urinal Data Completed and Pending Completed studies during hospitalization [Text1]: CXR; Diffuse increased interstitial lung markings.? This may represent pulmonary edema, pneumonia or progressive pulmonary fibrosis.? Please correlate clinically.? Venous doppler RLE: No evidence of a right lower extremity DVT.? Labs on day of discharge: Labs from last 24 hours 12/13/21 12/13/21 12/13/21 06:32 06:32 06:32 WBC 9.02 RBC 4.23 L Hgb 12.5 L Hct 40.5 MCV 96 H MCH 29.6 MCHC 30.9 L RDW 16.7 H Plt Count 181 MPV 10.2 Immature Gran % 0.6 Neutrophils % 84.7 Lymphocytes % 5.1 Monocytes % 9.5 Eosinophils % 0.0 Basophils % 0.1 Nucleated RBC % 0.0 Absolute Neutrophils 7.64 H Absolute Lymphocytes 0.46 L Absolute Monocytes 0.86 H Absolute Eosinophils 0.00 Absolute Basophils 0.01 PT 12.7 H INR 1.3 H D-Dimer 417 Sodium 139 Potassium 4.6 Chloride 105 Carbon Dioxide 29.2 Anion Gap 4.8 BUN 42 H Creatinine 1.3 Est GFR (CKD-EPI 2020) 58.73 Glucose 104 Calcium 8.4 L Magnesium 2.0 Total Bilirubin 0.6 Conjugated Bilirubin 0.2 AST 28 ALT 14 L Alkaline Phosphatase 59 C-Reactive Protein 1.48 H Total Protein 6.0 L Albumin 2.8 L PFSH All Active Problems (Updated 12/13/21 @ 15:19 by Letty Clark MD) Discharge planning issues (Acute) Pneumonia (Acute) Chronic atrial fibrillation with rapid ventricular response (Acute) COVID-19 (Acute) Acute exacerbation of chronic obstructive pulmonary disease (Acute) Hypoxia (Acute) Atrial fibrillation (Chronic) Peripheral edema (Acute) Low blood pressure (Acute) Pulmonary nodule (Acute) Chronic rhinitis (Acute) Respiratory failure (Acute) Dilated cardiomyopathy (Chronic) Right ventricular failure (Acute) Pulmonary fibrosis (Acute) Pulmonary hypertension (Chronic) Hemoptysis (Acute) SOB (shortness of breath) (Acute) Viral pharyngitis (Acute) Low blood pressure (Acute) Vasomotor rhinitis (Acute) Paroxysmal atrial fibrillation (Chronic 06/06/14) Essential hypertension (Chronic 06/17/16) Atrial fibrillation (Chronic 10/12/12) In 07/29/12 for atrial fib. Now in, 10-12-[address] Samir Rodriguez. Chronic obstructive lung disease (Chronic) Medical History Abscess Family History Mother , 64 Diabetes Heart disease Father , 80 Heart disease Sister , 58 Breast cancer Brother , 79 Essential hypertension Heart disease Maternal Grandfather Heart disease Son Essential hypertension Daughter No problems noted. Paternal Grandfather Heart disease Maternal Grandmother , 90 Stroke Paternal Grandmother , 90+ Heart disease Social History Smoking/Tobacco Use Status: Former Tobacco Use tobacco type: cigarettes Quit Date: 02/13/11 Tobacco: How many years used: 40 Second Hand Exposure: Yes Smoking risk assessment performed?: Yes Alcohol Intake: former Drug use: Never Substance use type: does not use Caregiver/Support person: No Household members: spouse Housing: house Communication Needs: None and Corrective Lenses Do you need help understanding health information?: Rarely Pets and animals: No Sexually active: No Do you think of yourself as: straight/heterosexual Current gender identity: male What is your relationship status?: How often do you talk on the phone with friends or family?: three or more times per week How often do you get together with friends or relatives?: once per week How often do you attend episcopalian or latter-day services?: 1-3 times per year Do you belong to any clubs or organized social groups?: no Panel score (0-1 are the most socially isolated patients): 2 What type of physical activity do you participate in: none Frequency: does not exercise Irena/Amish: Denominational Special irena needs: No Seatbelt use: sometimes Helmet use: No Drive intox or ride w/intox show horse driver: No Do you feel safe at home: Yes Do you feel safe in your relationship?: Yes
== END 2021-12-13 16:37 | disposition home or self-care (01) | DRG 177 ==
LOC: ER 16:55 → MS 18:00
PROVIDERS: Admitting Provider Internal Medicine; Emergency Provider Student in an Organized Health Care Education/Training Program; PCP Family Medicine; Visit Provider Internal Medicine
DX: U07.1 COVID-19 (principal); J12.82 Pneumonia due to coronavirus disease 2019; J96.21 Acute and chronic respiratory failure with hypoxia; J44.1 Chronic obstructive pulmonary disease with (acute) exacerbation; I48.20 Chronic atrial fibrillation, unspecified; I42.0 Dilated cardiomyopathy; Z66 Do not resuscitate; I27.20 Pulmonary hypertension, unspecified; Z99.81 Dependence on supplemental oxygen; J84.10 Pulmonary fibrosis, unspecified; R91.1 Solitary pulmonary nodule; R60.0 Localized edema; I95.1 Orthostatic hypotension
CPT/HCPCS: 36415; 80048; 80053; 80076; 82306; 82550; 84145; 87637; 93005; 94618; 94640; 96365; 96374; 96375; 99291; 71045; 82728; 83605; 83735; 83880; 84484; 85025; 85379; 85610; 86140; 93010; 93971; 94667; 99223; 99232; 99239; J0248; J1100; J3490; J7620

== ENCOUNTER 2022-03-07 02:54 | Outpatient (CLI) | payer OTHER, SELFPAY ==
[2022-03-07 13:14] LABS: Anion Gap 10.1 mmol/L (3-11); BUN 33 mg/dL (7-18); CO2 27.9 mmol/L (21.0-32.0); CREATININE 2.1 mg/dL (0.70-1.30); Calcium 9.3 mg/dL (8.5-10.1); Chloride 104 mmol/L (98-107); Estimated GFR 33.03 (mL/min/1.73m2); Glucose 98 mg/dL (74-106); Potassium 4.2 mmol/L (3.5-5.1); Sodium 142 mmol/L (136-145)
== END 2022-03-07 02:55 | disposition home or self-care (01) ==
LOC: LOS 02:54
PROVIDERS: PCP Family Medicine; Visit Provider Family Medicine
DX: E87.1 Hypo-osmolality and hyponatremia (principal)
CPT/HCPCS: 36415; 80048

== ENCOUNTER 2022-03-23 04:08 | Outpatient (CLI) | payer OTHER, SELFPAY ==
[2022-03-23 12:39] LABS: Anion Gap 8.5 mmol/L (3-11); BUN 22 mg/dL (7-18); CO2 32.5 mmol/L (21.0-32.0); CREATININE 1.7 mg/dL (0.70-1.30); Calcium 9.3 mg/dL (8.5-10.1); Chloride 102 mmol/L (98-107); Estimated GFR 42.57 (mL/min/1.73m2); Glucose 123 mg/dL (74-106); Potassium 3.3 mmol/L (3.5-5.1); Sodium 143 mmol/L (136-145)
== END 2022-03-23 04:09 | disposition home or self-care (01) ==
LOC: LOS 04:08
PROVIDERS: PCP Family Medicine; Visit Provider Family Medicine
DX: K52.9 Noninfective gastroenteritis and colitis, unspecified (principal)
CPT/HCPCS: 36415; 80048

== ENCOUNTER 2022-04-13 01:48 | Outpatient (CLI) | payer OTHER, SELFPAY ==
--- NOTE | 2022-04-13 07:45 | DI.CT_ITS ---
Exam(s) CT CHEST WO EXAM: CT CHEST WO CLINICAL HISTORY: F/U ABNL LUNG SCREENING CT,PULMONARY NODULE, R91.1. TECHNIQUE: Imaging protocol: Axial computed tomography images were obtained and coronal and sagittal reformatted images were created and reviewed. COMPARISON: CT CT CHEST WO from 06/09/[address] CHEST WO from 09/30/2021 FINDINGS: The examination is limited due to patient motion artifact. Tracheobronchial tree: Patent where visualized. Pulmonary parenchyma: Emphysematous changes are present in the lungs. There is again seen scarring i n the medial aspect of the left lower lobe. No new pulmonary nodules are identified. No focal conso lidating infiltrates are seen. There is biapical scarring present. Mediastinum and Paola: No dominant adenopathy or fluid collection. The esophagus is unremarkable. Thyroid gland: Unremarkable. Pleura: No effusion or pneumothorax. Heart: The heart is not dilated. Moderate coronary artery calcification is present. No pericardial e ffusion. Aorta: Thoracic aorta non-dilated. Atherosclerosis is present. Upper abdomen: Unremarkable. Lymph nodes: Within normal limits. Soft tissues: Mild gynecomastia. Bones:Within normal limits for the patient's age. IMPRESSION: 1. Stable appearance of the chest. No new pulmonary nodules. Scarring seen in the left lower lobe. 2. Pulmonary emphysematous changes. 3. Coronary artery disease and atherosclerosis. RADIATION DOSE DELIVERED: 446.24mGy.cm Total DLP 446.24mGy.cm Total DLP DATA REPOSITORY: All CT scans at this facility are submitted to the National Radiology Data Registry (NRDR) Dose Index Registry (DIR) with the [employer] (ACR). RADIATION OPTIMIZATION: All CT scans at this facility use at least one of these dose optimization te chniques: automated exposure control; mA and/or kV adjustment per patient size (includes targeted exa ms where dose is matched to clinical indication); or iterative reconstruction.
== END 2022-04-13 02:08 ==
PROVIDERS: PCP Family Medicine; Visit Provider Physician Assistant Surgical
DX: R91.1 Solitary pulmonary nodule (principal); J43.8 Other emphysema; J98.4 Other disorders of lung
CPT/HCPCS: 71250

== ENCOUNTER 2022-04-21 03:01 | Outpatient (CLI) | payer OTHER, SELFPAY ==
[2022-04-21 13:01] LABS: Anion Gap 10.7 mmol/L (3-11); BUN 26 mg/dL (7-18); CO2 29.3 mmol/L (21.0-32.0); CREATININE 1.8 mg/dL (0.70-1.30); Calcium 9.2 mg/dL (8.5-10.1); Chloride 104 mmol/L (98-107); Estimated GFR 39.75 (mL/min/1.73m2); Glucose 98 mg/dL (74-106); Potassium 4.3 mmol/L (3.5-5.1); Sodium 144 mmol/L (136-145)
== END 2022-04-21 03:02 | disposition home or self-care (01) ==
LOC: LOS 03:01
PROVIDERS: PCP Family Medicine; Visit Provider Family Medicine
DX: E87.6 Hypokalemia (principal); I10 Essential (primary) hypertension
CPT/HCPCS: 80048

== ENCOUNTER 2022-06-10 14:13 | Outpatient (RCR) | payer OTHER, SELFPAY | END 2022-06-12 23:59 | disposition home or self-care (01) | LOC: PRC 14:13 | PROVIDERS: PCP Family Medicine; Visit Provider Student in an Organized Health Care Education/Training Program | DX: J44.9 Chronic obstructive pulmonary disease, unspecified (principal) | CPT/HCPCS: 94626 ==

== ENCOUNTER 2022-06-24 13:00 | Outpatient (RCR) | payer OTHER, SELFPAY | END 2022-07-13 23:59 | disposition home or self-care (01) | LOC: PRC 13:00 | PROVIDERS: PCP Family Medicine; Visit Provider Student in an Organized Health Care Education/Training Program | DX: J44.1 Chronic obstructive pulmonary disease with (acute) exacerbation (principal) | CPT/HCPCS: 94626 ==

== ENCOUNTER 2022-06-27 15:56 | Outpatient (CLI) | payer OTHER, SELFPAY ==
[2022-06-27 16:57] LABS: Anion Gap 6.9 mmol/L (3-11); BUN 23 mg/dL (7-18); CO2 33.1 mmol/L (21.0-32.0); CREATININE 1.9 mg/dL (0.70-1.30); Calcium 9.3 mg/dL (8.5-10.1); Chloride 100 mmol/L (98-107); Estimated GFR 37.25 (mL/min/1.73m2); Glucose 80 mg/dL (74-106); Potassium 3.7 mmol/L (3.5-5.1); Sodium 140 mmol/L (136-145)
[2022-06-27 17:00] LABS: Uric Acid 10.5 mg/dL (3.5-7.2)
== END 2022-06-27 15:57 | disposition home or self-care (01) ==
LOC: LBO 15:57
PROVIDERS: Nurse Practitioner Family; PCP Family Medicine; Visit Provider Family Medicine
DX: E87.1 Hypo-osmolality and hyponatremia (principal); M10.9 Gout, unspecified
CPT/HCPCS: 36415; 80048; 84550

== ENCOUNTER 2022-07-12 03:02 | Outpatient (CLI) | payer OTHER, SELFPAY ==
--- NOTE | 2022-07-12 15:12 | DI.US_ITS ---
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 Left ventricle chamber size is small. There is diastolic se ptal flattening and paradoxic septal motion consistent with right ventricular volume and pressure ove rload. Left ventricular ejection fraction is probably normal, EF 50 to 55% Right ventricle is massively dilated and hypocontractile Left atrium is mildly dilated. The right atrium is massively dilated Aortic valve is sclerotic and probably trileaflet without stenosis or regurgitation Mild mitral annular calcification, trace mitral regurgitation Tricuspid valve is structurally normal with severe regurgitation. Estimated right ventricular systol ic pressure is 81 mmHg Wall motion Left Ventricle The left ventricle is normal. Left ventricular systolic function is difficult to assess but is probab ly normal The posterior wall thickness is normal. The septum is normal. Flattened septum consistent w ith right ventricular volume and pressure overload. There is no ventricular septal defect visualized. LVEF is 50-55%. Right Ventricle Right ventricle is severely dilated. Right ventricle is hypokinetic Estimated right ventricular systo lic pressure is 81.1 mmHg. Atria Left atrium is mildly dilated. Right atrium is severely dilated. The interatrial septum is intact wit h no evidence for an atrial septal defect. Aortic Valve The Aortic valve is sclerotic. Aortic valve is probably trileaflet. There is no aortic valvular steno sis. No aortic regurgitation is present. Mitral Valve Mild mitral annular calcification. No evidence of mitral valve stenosis. Trace mitral regurgitation. Tricuspid Valve The tricuspid valve is normal in structure. There is no tricuspid valve stenosis. Severe tricuspid re gurgitation. Pulmonic Valve The pulmonary valve is normal in structure. There is no pulmonic valvular stenosis. Trace pulmonic re gurgitation. Great Vessels Aortic root is moderately dilated. Ascending aorta is not well visualized. Aortic arch is grossly nor mal in caliber. The IVC collapses <50% with inspiration. Pericardium There is no pericardial effusion. 2D Dimensions IVSD d PLAX 0.62 cm M: 0.6-1.2 LV Vol A2C d MOD 69.6 mL LVPW d PLAX 0.65 cm M: 0.6 - 1.2 LV Vol A4C d MOD 33.5 mL LVID d PLAX 4.54 cm M: 4.2 - 5.8 LA vol/ BSA A4C s A-L 30.2 mL/m2 LVDs 3.55 cm M: 2.5 - 4.0 LA Area A4C s MOD 21.33 cm2 Ao Root d 4.14 cm M: 3.1 - 3.7 LV EF A4C MOD 45.0 % LV EF Teichholz 42.8 % LV EF A2C MOD 46.4 % LVEF (Avendano's) 44.98 % M: 52 - 72 LV EF Biplane MOD 45.0 % LV Volume 36.41 mL M: 62 - 150 SV 21.64 mL LV Volume Index 18.67 mL/m2 M: 34 - 74 SV Index 11.11 mL/m2 LV Vol Biplane MOD 48.1 mL FS 20.95 % M-Mode TAPSE 1.52 cm (M/F) >1.7 LV Diastology MV E' medial 0.171 (>0.07 m/s) MV E Vmax 0.68 (0.4-1.3 m/s) LV E/e MED 3.95 (<14) MV E' lateral 0.150 (>0.1 m/s) LV E/e LAT 4.50 (<14) MV E/E' medial 3.98 MV E/E' lateral 4.53 Aortic Valve LVOT Area 3.65 cm2 LVOT Diam s 2.15 cm AoV Vmax 0.84 m/s AoV Mean Rafy. 0.62 m/s AoV Peak Grad 2.8 mmHg AoV Mean Grad 1.7 mmHg AoV VTI 0.120 m Mitral Valve MV DT 158 (160-240 msec) MV PHT 46 msec MV Area PHT 4.81 cm2 Pulmonary Valve PV Vmax 0.79 (0.5-1.5 m/s) RVOT Peak Gr. 0.36 mmHg PV Peak Grad 2.5 mmHg RVOT Mean Gr. 0.15 mmHg PV Mean Grad 1.2 mmHg RVOT VTI 0.035 m PV VTI 0.100 m RVOT Vmax 0.30 m/s Tricuspid Valve TR Peak Grad 73.1 mmHg TR Vmax 4.28 m/s RA Pressure 8.00 mmHg RVSP (TR) 81.1 mmHg
== END 2022-07-12 03:22 ==
LOC: DI 03:02
PROVIDERS: PCP Family Medicine; Visit Provider Family Medicine
DX: I27.20 Pulmonary hypertension, unspecified (principal); I42.0 Dilated cardiomyopathy; I48.91 Unspecified atrial fibrillation
CPT/HCPCS: 93306

== ENCOUNTER 2022-08-01 16:10 | Outpatient (REF) | payer OTHER, SELFPAY ==
[2022-08-01 17:57] LABS: Abs Immature Grans 0.07 10^3/uL (0.0-0.06); Absolute Basophil Count 0.07 10^3/uL (0.0-0.2); Absolute Eosinophil Count 0.11 10^3/uL (0.0-0.7); Absolute Lymphocyte Count 0.98 10^3/uL (1.2-3.4); Absolute Monocyte Count 0.88 10^3/uL (0.1-0.8); Absolute Neutrophil Count 6.47 10^3/uL (1.2-6.7); Basophils % 0.8; Eosinophils % 1.3; HCT 41.3 % (40.0-50.0); Immature Grans % 0.8; Lymphocytes % 11.4; MCH 30.2 pg (27.0-33.0); MCHC 31.5 % (32.0-36.0); MCV 96 fL (80-95); MPV 10.2 fL (8.0-11.0); Monocytes % 10.3; Neutrophils % 75.4; Platelet Count 284 10^3/uL (130-400); RBC 4.31 10^6/uL (4.36-5.78); RDW 14.9 % (11.8-14.1); RDW-SD 53.1 fL; WBC 8.58 10^3/uL (4.4-10.8)
[2022-08-01 18:43] LABS: Anion Gap 7.9 mmol/L (3-11); BUN 44 mg/dL (7-18); CO2 37.1 mmol/L (21.0-32.0); CREATININE 2.1 mg/dL (0.70-1.30); Calcium 8.9 mg/dL (8.5-10.1); Chloride 99 mmol/L (98-107); Estimated GFR 33.03 (mL/min/1.73m2); Glucose 83 mg/dL (74-106); Potassium 3.5 mmol/L (3.5-5.1); Sodium 144 mmol/L (136-145)
== END 2022-08-01 16:11 | disposition home or self-care (01) ==
LOC: LBN 16:10
PROVIDERS: PCP Family Medicine; Visit Provider Physician Assistant Surgical
DX: N39.0 Urinary tract infection, site not specified (principal); I48.91 Unspecified atrial fibrillation
CPT/HCPCS: 80048; 85025

== ENCOUNTER 2023-03-16 13:26 | Inpatient (IN) | payer OTHER, SELFPAY ==
[2023-03-16 15:08] VITALS: BP 112/74; PULSE 100; RESP 18; TEMP 37.9; O2SAT 88
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
[2023-03-16] MEDS: MORPHine Oral Concentrate 20 MG/ML 5 MG PO (16:40)
--- NOTE | 2023-03-16 17:54 | CHAPLAIN ---
I visited with Bel, Mina' this evening. Mina was in bed, sleeping. I brought a prayer shawl for Mina. He was not interacting with Bel. Bel may spend the night, she's not sure. They live in [facility]. Mina has been on hospice for a few months and is here for respite care. Bel said she and Mina met with then were teenagers and lived near each other in [place]. Mina is the talker of the two, she said. 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 She said it is helpful for her to be here and just be Mina' , and not his caregiver also. Dr. Pepe believes Mina has just days to live. Bel said she has been well supported by her children. She told me that Mina wants to be buried in [place], where they are from, and would like a graveside service. She said they have not attended temple since she worked on weekends and she and Mina often worked opposite shifts when they kids were younger. We talked about connecting with God and a higher power in many places outside of temple.
[2023-03-16] MEDS: Scopolamine 1 MG/3 DAYS PATCH TD (18:00)
== END 2023-03-16 19:10 | disposition expired | DRG 189 ==
PROVIDERS: Admitting Provider Family Medicine; PCP Family Medicine; Visit Provider Family Medicine
DX: J96.21 Acute and chronic respiratory failure with hypoxia (principal); F05 Delirium due to known physiological condition; I48.20 Chronic atrial fibrillation, unspecified; I42.0 Dilated cardiomyopathy; R50.9 Fever, unspecified; I95.9 Hypotension, unspecified; Z62.819 Personal history of unspecified abuse in childhood; Z51.5 Encounter for palliative care; Z99.81 Dependence on supplemental oxygen; Z74.01 Bed confinement status; I27.81 Cor pulmonale (chronic); I50.810 Right heart failure, unspecified; M10.9 Gout, unspecified; E87.6 Hypokalemia; R63.0 Anorexia; R60.0 Localized edema; J44.9 Chronic obstructive pulmonary disease, unspecified; Z87.891 Personal history of nicotine dependence
CPT/HCPCS: 00123